=== PATIENT | female | born 1945 | race Caucasian/White ===

== ENCOUNTER 2019-04-06 10:47 | Inpatient (IN) ==
--- NOTE | 2019-04-06 11:41 | XRay Report ---
XR chest 1V portable CLINICAL HISTORY: 73 years-old Female presenting with SOB. TECHNIQUE: Portable upright AP view of the chest was obtained. COMPARISON: 11/09/2017. FINDINGS: Atherosclerosis of the aortic arch. Tortuosity of the descending thoracic aorta. Cardiac silhouette b orderline enlarged. No focal opacity. Resolution of prior right pleural effusion. No large effusion o r pneumothorax. Degenerative changes of the thoracic spine. Upper abdomen normal. IMPRESSION: 1. Borderline cardiomegaly. No other convincing evidence of acute cardiopulmonary disease. ACT 112: Negative or not required by law. Electronically signed by: Paul Calderon M.D. 04/06/2019 11:40 AM
[2019-04-06 12:33] LABS: Basophils # (auto) 0.03 K/uL (0-0.2); Basophils % (auto) 0.8 %; Eosinophils # (auto) 0.18 K/uL (0-0.5); Eosinophils % (auto) 4.5 %; Hematocrit (blood only) 29.4 % (37-47); Immature Granulocytes # (auto) 0.04 K/uL (0.00-0.02); Lymphocytes # (auto) 1.71 K/uL (1.2-3.4); Lymphocytes % (auto) 42.9 %; Mean Corpuscular Hemoglobin 32.6 pg (25-34); Mean Corpuscular Volume 95.8 fL (80-100); Mean Platelet Volume 8.8 fL (7.4-10.4); Monocytes # (auto) 0.37 K/uL (0.11-0.59); Monocytes % (auto) 9.3 %; Neutrophils # (auto) 1.66 K/uL (1.4-6.5); Neutrophils % (auto) 41.5 %; Nucleated RBC # (auto) 0.03 K/uL (0-0); Nucleated RBC % (auto) 0.8 %; Platelet Count 271 K/uL (130-400); RDW Coefficient of Variation 16.7 % (11.5-14.5); RDW Standard Deviation 58.2 fL (36.4-46.3); Red Blood Count 3.07 M/uL (4.2-5.4); White Blood Count 3.99 K/uL (4.8-10.8)
[2019-04-06 12:42] LABS: INR 2.1 (0.9-1.1); Partial Thromboplastin Ratio 1.1; Partial Thromboplastin Time 30.2 Seconds (21.0-31.0); Prothrombin Time 20.1 Seconds (9.0-12.0)
--- NOTE | 2019-04-06 12:45 | Electrocardiogram Report ---
Test Reason : Blood Pressure : / mmHG Vent. Rate : 102 BPM Atrial Rate : 094 BPM P-R Int : 000 ms QRS Dur : 076 ms QT Int : 378 ms P-R-T Axes : 000 001 006 degrees QTc Int : 492 ms Atrial fibrillation with rapid ventricular response Low voltage QRS Nonspecific T wave abnormality Abnormal ECG When compared with ECG of 29-JAN-2018 09:45, Significant changes have occurred Confirmed by Dedrick Damon ([id number]) on 04/06/2019 12:45:00 PM Referred By: Confirmed By:Dedrick Damon
[2019-04-06 12:53] LABS: Alanine Aminotransferase 26 U/L (12-78); Albumin Globulin Ratio 0.9 (0.9-2); Albumin Level 3.6 gm/dl (3.4-5.0); BUN Creatinine Ratio 18.2 (10-20); Bilirubin,Total 0.4 mg/dl (0.2-1); Blood Urea Nitrogen 13 mg/dl (7-18); Calcium 9.3 mg/dl (8.5-10.1); Carbon Dioxide 23 mmol/L (21-32); Chloride 109 mmol/L (98-107); Creatinine Clr Calc Pharmacy 65.8 ml/min; Est GFR (African American) 97.7; Est GFR (Non-African American) 84.3; Globulin 3.8 gm/dl (2.5-4.0); Glucose 92 mg/dl (70-99); Potassium 3.7 mmol/L (3.5-5.1); Sodium 140 mmol/L (136-145); Total Protein 7.4 gm/dl (6.4-8.2)
[2019-04-06 12:56] LABS: Alkaline Phosphatase 100 U/L (45-117); Aspartate Aminotransferase 15 U/L (15-37); Troponin I < 0.015 ng/ml (0-0.045)
[2019-04-06] MEDS ORDERED: dilTIAZem HCl 5 MG/ML 5 ML VIAL IV STA (12:57)
[2019-04-06] MEDS: dilTIAZem HCL 125 MG in DEXTROSE 5% 100 ML IV SCH (13:33)
--- NOTE | 2019-04-06 14:01 | History & Physical Report ---
Date of Service April 06, 2019 Assessment & Plan (1) Rapid atrial fibrillation: History of PAF and was admitted with A. fib with RVR Complains of shortness of breath with palpitation for the last 1 week with exertion Has been started on intravenous Cardizem Will get serial cardiac enzymes and cardiology consult We will continue sotalol and metoprolol succinate Cardiology consulted (2) Paroxysmal atrial fibrillation: Rate was controlled with sotalol beta-jalen Now has A. fib with RVR (3) HTN (hypertension): Blood pressure is controlled We will continue current medications (4) Anemia: Has chronic anemia No acute blood loss Her other medical conditions remained stable DVT prophylaxis On Coumadin INR therapeutic CODE STATUS Full History of Present Illness Chief Complaint: Shortness of breath with palpitation for the last 1 week Primary Care Provider: Mare Wright DO She is a 73-year-old female with significant past medical history of paroxysmal atrial fibrillation on sotalol and beta-jalen on Coumadin, hypertension and chronic anemia has been complaining of shortness of breath with palpitation with exertion for the last 1 week. She denies any chest pain, dizziness or any nausea and or vomiting associated with it. She has been complaining of more shortness of breath with exertion denies any weight gain and/or swelling of the legs. No fever and/or chills, no cough or phlegm, no problem with urine and her bowel habit. In the ER she was noted to have a heart rate of around 117 and the EKG did show A. fib with rate of 102. She was started with intravenous Cardizem and was admitted to telemetry unit for continuation of care. Allergies Allergy/AdvReac Type Severity Reaction Status Date / Time propranolol Allergy Mild bronchospasms Verified 04/06/19 12:04 with higher doses Iodinated Contrast Media Allergy Unknown HAD 1 WELT Verified 04/06/19 12:04 on one occasion nickel Allergy Unknown contact Verified 04/06/19 12:04 dermatitis Home Medications Home Medications Medication Instructions Recorded Confirmed Type Calcium 600 + D(3) 1 tab PO BID 12/18/17 04/06/19 History Prilosec OTC 20 mg PO QAM 12/18/17 04/06/19 History alendronate [Fosamax] 1 tab PO WK 12/18/17 04/06/19 History aspirin 81 mg PO QAM 12/18/17 04/06/19 History cetirizine [Zyrtec] 5 mg PO DAILY PRN 12/18/17 04/06/19 History fluticasone propionate [Flonase 1 spray INTRANASAL DAILY PRN 12/18/17 04/06/19 History Allergy Relief] levothyroxine 25 mcg PO QAM 12/18/17 04/06/19 History lysine 1,000 mg PO QAM 12/18/17 04/06/19 History valacyclovir 2,000 mg PO Q12H PRN 12/18/17 04/06/19 History warfarin 2.5 mg PO SUMOTUWETHFR 12/18/17 04/06/19 History sotalol 80 mg PO BID #60 tab 01/29/18 04/06/19 Rx amlodipine 5 mg PO DAILY 04/06/19 04/06/19 History losartan 100 mg PO DAILY 04/06/19 04/06/19 History metoprolol succinate 25 mg PO DAILY 04/06/19 04/06/19 History Past Med/Surg History Medical History A-fib RECENT DIAGNOSIS; PAROXYSMAL- ON WARFARIN Anxiety Atrial fibrillation with rapid ventricular response GERD (gastroesophageal reflux disease) History of cardioversion HTN (hypertension) Hx of bronchitis 11/2017 Hx of migraines Hx of skin cancer, basal cell NOSE Hypothyroidism Leukocytosis (leucocytosis) Obesity Osteoporosis Primary open angle glaucoma Stress bladder incontinence, female Valvular disease MILD TR/MR Surgical History History of bilateral tubal ligation History of colonoscopy History of cystoscopy S/P BOTOX INJECTION History of esophagogastroduodenoscopy (EGD) History of total left hip arthroplasty Family History Mother Atrial fibrillation Stroke Father Hypertension Mother Family history of diabetes mellitus Social History Preferred Language: [place] Communication Ability: Effective Plsql Developer Required: No Beliefs That Will Affect Care: None marital status: Current Living Situation: Spouse Other Information That Helps Us Care for You: No Feels Safe at Home: Yes Safety Concerns: Feels Safe At This Time Smoking Status: Never smoker Do You Dip or Chew Tobacco: No ; Second Hand Exposure: No ; Tobacco Cessation Education Requested by Patient: No Hx Alcohol Use: Yes Alcohol type: wine Hx Substance Use: No Review of Systems Review of Systems: All systems reviewed & are unremarkable except as noted in HPI & below Physical Exam Physical Exam: Lying in bed comfortably Constitutional: well developed and well nourished; no acute distress and not ill appearing Eyes: PERRL, conjunctivae normal, anicteric sclerae ENMT: external ear and nose normal, oropharynx normal Neck: trachea midline, no thyromegaly Respiratory: normal respiratory effort; no respiratory distress Auscultation: lungs clear to auscultation bilaterally Cardiovascular: Rate/Rhythm: + tachycardic; + abnormal rate and + abnormal rhythm Heart Sounds: no murmur Extremities: + edema (Trace edema bilaterally) Gastrointestinal (Abdomen): Inspection/Auscultation: abdomen normal to inspection and normal bowel sounds Percussion/Palpation: abdomen soft; abdomen nontender Neurologic: moves all extremities; no focal motor deficits Psychiatric: A+Ox3, euthymic affect Lymphatic: no cervical or axillary lymphadenopathy Results & Data Vital Signs (Past 12 Hours) Vital Signs Temp Pulse Resp BP Pulse Ox 04/06/19 13:40 96 H 14 113/76 96 04/06/19 13:36 103 H 21 126/81 95 04/06/19 13:30 119 H 21 144/103 H 97 04/06/19 13:00 109 H 18 117/101 H 96 04/06/19 12:30 99 H 22 127/95 95 04/06/19 12:00 117 H 26 H 115/75 04/06/19 11:55 109 H 23 118/73 04/06/19 11:47 90 04/06/19 11:14 36.8 C 104 H 18 119/81 98 Laboratory Results Short CBC 04/06/19 Range/Units 12:12 WBC 3.99 L (4.8-10.8) K/uL Hgb 10.0 L (12.0-16.0) g/dL Hct 29.4 L (37-47) % Plt Count 271 (130-400) K/uL BMP 04/06/19 12:12 Sodium 140 Potassium 3.7 Chloride 109 H Carbon Dioxide 23 BUN 13 Creatinine 0.72 Glucose 92 Calcium 9.3 Cardiac Enzymes 04/06/19 Range/Units 12:12 Troponin I < 0.015 (0-0.045) ng/ml Liver Function 04/06/19 Range/Units 12:12 Total Bilirubin 0.4 (0.2-1) mg/dl AST 15 (15-37) U/L ALT 26 (12-78) U/L Alkaline Phosphatase 100 (45-117) U/L Albumin 3.6 (3.4-5.0) gm/dl Medications Administered Current Inpatient Medications Diltiazem HCl 125 mg/ Dextrose 125 mls @ 5 mls/hr IV .Q24H [facility]; Protocol Stop: 05/06/19 12:59 Last Admin: 04/06/19 13:33 Dose: 5 mg/hr, 5 mls/hr Documented by: Code Status & VTE Plan VTE Prophylaxis Plan VTE Prophylaxis will be ordered: Yes (1) Anemia Anemia type: unspecified type Qualified Code(s): D64.9 - Anemia, unspecified
[2019-04-06] MEDS ORDERED: FLUTICASONE PROPIONATE NA SPR 16 GM BTL PRN (14:57)
[2019-04-06] MEDS ORDERED: CETIRIZINE HCL 10 MG TABLET PO PRN (14:57)
[2019-04-06] MEDS: WARFARIN SOD 2.5 MG TAB PO SCH (16:34)
--- NOTE | 2019-04-06 17:27 | Cardiology Consultation ---
Date of Consultation April 06, 2019 Assessment & Plan (1) Rapid atrial fibrillation: (2) Anemia: INR today is 2.1. Hemoglobin stable at 10. View of recent outpatient INR tests dating back to 01/01/2019 have been greater than 2. Continue prior to hospital dosing of sotalol, metoprolol, and add IV diltiazem for now. Continue Coumadin. Make n.p.o. after midnight for consideration of direct-current cardioversion tomorrow. History of Present Illness Attending Physician: Tyler Mcginnis MD History of Present Illness Oralia Wolfe is a 73 year old female seen in cardiology consultation per the request of Dr Mcginnis for the evaluation of atrial fibrillation. The patient's primary inspector experimental assembly is Dr. Morris Zhou of our practice who the patient had most recently seen on 03/24/2019. At that time she described stable cardiac signs and symptoms. In the meantime she has been experiencing shortness of breath with exertion and palpitations for the last week. In the emergency room, telemetry and EKG confirmed the presence of atrial fibrillation with mildly elevated ventricular response. Past Cardiac History: 1. Paroxysmal atrial fibrillation, on rhythm control strategy on a combination of metoprolol and sotalol, Coumadin for stroke prophylaxis, most recent recurrence in November 2018 2. Borderline tachycardia bradycardia syndrome 3. Severe tricuspid regurgitation with moderate pulmonary hypertension, most recent outpatient echocardiogram in December 2019 revealing LVEF in the range of 60%, pulmonary artery systolic pressure in the range of 40 to 45 mmHg. Allergies Allergy/AdvReac Type Severity Reaction Status Date / Time propranolol Allergy Mild bronchospasms Verified 04/06/19 12:04 with higher doses Iodinated Contrast Media Allergy Unknown HAD 1 WELT Verified 04/06/19 12:04 on one occasion nickel Allergy Unknown contact Verified 04/06/19 12:04 dermatitis Home Medications Home Medications Medication Instructions Recorded Confirmed Type Calcium 600 + D(3) 1 tab PO BID 12/18/17 04/06/19 History Prilosec OTC 20 mg PO QAM 12/18/17 04/06/19 History alendronate [Fosamax] 1 tab PO WK 12/18/17 04/06/19 History aspirin 81 mg PO QAM 12/18/17 04/06/19 History cetirizine [Zyrtec] 5 mg PO DAILY PRN 12/18/17 04/06/19 History fluticasone propionate [Flonase 1 spray INTRANASAL DAILY PRN 12/18/17 04/06/19 History Allergy Relief] levothyroxine 25 mcg PO QAM 12/18/17 04/06/19 History lysine 1,000 mg PO QAM 12/18/17 04/06/19 History valacyclovir 2,000 mg PO Q12H PRN 12/18/17 04/06/19 History warfarin 2.5 mg PO SUMOTUWETHFR 12/18/17 04/06/19 History sotalol 80 mg PO BID #60 tab 01/29/18 04/06/19 Rx amlodipine 5 mg PO DAILY 04/06/19 04/06/19 History losartan 100 mg PO DAILY 04/06/19 04/06/19 History metoprolol succinate 25 mg PO DAILY 04/06/19 04/06/19 History Patient History Medical History A-fib RECENT DIAGNOSIS; PAROXYSMAL- ON WARFARIN Anxiety Atrial fibrillation with rapid ventricular response GERD (gastroesophageal reflux disease) History of cardioversion HTN (hypertension) Hx of bronchitis 11/2017 Hx of migraines Hx of skin cancer, basal cell NOSE Hypothyroidism Leukocytosis (leucocytosis) Obesity Osteoporosis Primary open angle glaucoma Stress bladder incontinence, female Valvular disease MILD TR/MR Surgical History History of bilateral tubal ligation History of colonoscopy History of cystoscopy S/P BOTOX INJECTION History of esophagogastroduodenoscopy (EGD) History of total left hip arthroplasty Family History Mother Atrial fibrillation Stroke Father Hypertension Mother Family history of diabetes mellitus Social History Preferred Language: Danish Communication Ability: Effective Open End Spinning Operator Required: No Beliefs That Will Affect Care: None marital status: Current Living Situation: Spouse Other Information That Helps Us Care for You: No Feels Safe at Home: Yes Safety Concerns: Feels Safe At This Time Smoking Status: Never smoker Do You Dip or Chew Tobacco: No ; Second Hand Exposure: No ; Tobacco Cessation Education Requested by Patient: No Hx Alcohol Use: Yes Alcohol type: wine Hx Substance Use: No Review of Systems Review of Systems: All systems reviewed & are unremarkable except as noted in HPI & below Physical Exam Physical Exam: Temp Pulse Resp BP Pulse Ox 36.3 C L 101 H 16 144/80 H 97 04/06/19 15:46 04/06/19 15:46 04/06/19 15:46 04/06/19 15:46 04/06/19 15:46 Constitutional: WD/WN, vitals as above Respiratory: normal respiratory effort, lungs clear to auscultation Cardiovascular: Rate/Rhythm: + irregularly irregular Heart Sounds: + murmur (1/6 systolic murmur) Gastrointestinal (Abdomen): normal bowel sounds, soft, nontender, no hepatosplenomegaly Neurologic: PERRL, EOMI, accommodation nl, no face palsy, no dysarthria Results & Data Vital Signs (Past 12 Hours) Vital Signs Temp Pulse Pulse Resp BP BP Pulse Ox 04/06/19 15:46 36.3 C L 90 101 H 16 144/80 H 97 04/06/19 14:11 86 15 119/71 95 04/06/19 14:00 74 20 118/67 96 04/06/19 13:50 103 H 20 104/76 95 04/06/19 13:40 96 H 14 113/76 96 04/06/19 13:36 103 H 21 126/81 95 04/06/19 13:30 119 H 21 144/103 H 97 04/06/19 13:00 109 H 18 117/101 H 96 04/06/19 12:30 99 H 22 127/95 95 04/06/19 12:00 117 H 26 H 115/75 04/06/19 11:55 109 H 23 118/73 04/06/19 11:47 90 04/06/19 11:14 36.8 C 104 H 18 119/81 98 Laboratory Results Cardiac Enzymes 04/06/19 Range/Units 12:12 AST 15 (15-37) U/L Troponin I < 0.015 (0-0.045) ng/ml Coagulation 04/06/19 Range/Units 12:12 PT 20.1 H (9.0-12.0) Seconds APTT 30.2 (21.0-31.0) Seconds CBC 04/06/19 Range/Units 12:12 WBC 3.99 L (4.8-10.8) K/uL RBC 3.07 L (4.2-5.4) M/uL Hgb 10.0 L (12.0-16.0) g/dL Hct 29.4 L (37-47) % Plt Count 271 (130-400) K/uL Neut # (Auto) 1.66 (1.4-6.5) K/uL Lymph # (Auto) 1.71 (1.2-3.4) K/uL [place] # (Auto) 0.37 (0.11-0.59) K/uL Eos # (Auto) 0.18 (0-0.5) K/uL Baso # (Auto) 0.03 (0-0.2) K/uL Comprehensive Metabolic Panel 04/06/19 Range/Units 12:12 Sodium 140 (136-145) mmol/L Potassium 3.7 (3.5-5.1) mmol/L Chloride 109 H (98-107) mmol/L Carbon Dioxide 23 (21-32) mmol/L BUN 13 (7-18) mg/dl Creatinine 0.72 (0.6-1.2) mg/dl Glucose 92 (70-99) mg/dl Calcium 9.3 (8.5-10.1) mg/dl AST 15 (15-37) U/L ALT 26 (12-78) U/L Alkaline Phosphatase 100 (45-117) U/L Total Protein 7.4 (6.4-8.2) gm/dl Albumin 3.6 (3.4-5.0) gm/dl Intake and Output 04/06/19 04/06/19 04/06/19 06:59 14:59 22:59 Other: Weight 77.1 kg Patient Weight 04/07/19 06:59 Weight 77.1 kg Diagnostic Findings EKG performed earlier today 04/06/2019 at 12:13 AM revealed atrial fibrillation 102 bpm, nonspecific diffuse T wave flattening, corrected QT interval 492 ms, although difficult to measure/calculate due to the atrial activity. (1) Anemia Anemia type: unspecified type Qualified Code(s): D64.9 - Anemia, unspecified
--- NOTE | 2019-04-06 18:18 | Emergency Department Note ---
Entered by Ander Pereira acting as a scribe for Dima Mann MD History of Present Illness General Chief complaint: Shortness of Breath/Dyspnea Stated complaint: SHORTNESS OF BREATH Time Seen by Provider: 04/06/19 12:50 Source: patient Limitations: no limitations History of Present Illness Onset (ago): week(s) 1 Location: chest Severity: similar to prior episodes Pain Consistency: + other (worsening) Maximum Pain Intensity: 2 Quality: + other (flutter) Associated symptoms: + denies other symptoms (black or bloody stools), + shortness of breath and + other (anxious, chest fullness); no chest pain The patient is a 73 year old female who presents to the Emergency Room with complaints of constant and worsening SOB starting a week ago. The patient states she has a history of A-Fib and states she goes in and out of it. She states she has been in A-Fib for a week and has not converted to a normal rhythm. She states she has been getting more anxious and SOB as the week has progressed. She states she has been having a chest fullness feeling. She states she was last in A-Fib for a prolonged period of time in December when she was in A-Fib for 4 days. She states she converted to a normal rhythm. She states she takes Coumadin and states she has had a high INR for a few weeks at about 5.5. The patient denies having black or bloody stools and chest pain. She states she has had back pain for a couple months. 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 Zhou. Home Medications Home Medications Medication Instructions Recorded Confirmed Type Calcium 600 + D(3) 1 tab PO BID 12/18/17 04/06/19 History Prilosec OTC 20 mg PO QAM 12/18/17 04/06/19 History alendronate [Fosamax] 1 tab PO WK 12/18/17 04/06/19 History aspirin 81 mg PO QAM 12/18/17 04/06/19 History cetirizine [Zyrtec] 5 mg PO DAILY PRN 12/18/17 04/06/19 History fluticasone propionate [Flonase 1 spray INTRANASAL DAILY PRN 12/18/17 04/06/19 History Allergy Relief] levothyroxine 25 mcg PO QAM 12/18/17 04/06/19 History lysine 1,000 mg PO QAM 12/18/17 04/06/19 History valacyclovir 2,000 mg PO Q12H PRN 12/18/17 04/06/19 History warfarin 2.5 mg PO SUMOTUWETHFR 12/18/17 04/06/19 History sotalol 80 mg PO BID #60 tab 01/29/18 04/06/19 Rx amlodipine 5 mg PO DAILY 04/06/19 04/06/19 History losartan 100 mg PO DAILY 04/06/19 04/06/19 History metoprolol succinate 25 mg PO DAILY 04/06/19 04/06/19 History Allergies Allergy/AdvReac Type Severity Reaction Status Date / Time propranolol Allergy Mild bronchospasms Verified 04/06/19 12:04 with higher doses Iodinated Contrast Media Allergy Unknown HAD 1 WELT Verified 04/06/19 12:04 on one occasion nickel Allergy Unknown contact Verified 04/06/19 12:04 dermatitis Past Med/Surg History Medical History A-fib RECENT DIAGNOSIS; PAROXYSMAL- ON WARFARIN Anxiety Atrial fibrillation with rapid ventricular response GERD (gastroesophageal reflux disease) History of cardioversion HTN (hypertension) Hx of bronchitis 11/2017 Hx of migraines Hx of skin cancer, basal cell NOSE Hypothyroidism Leukocytosis (leucocytosis) Obesity Osteoporosis Primary open angle glaucoma Stress bladder incontinence, female Valvular disease MILD TR/MR Surgical History History of bilateral tubal ligation History of colonoscopy History of cystoscopy S/P BOTOX INJECTION History of esophagogastroduodenoscopy (EGD) History of total left hip arthroplasty Family History Mother Atrial fibrillation Stroke Father Hypertension Mother Family history of diabetes mellitus Social History Preferred Language: Kittitian Communication Ability: Effective Reference And Instruction Librarian Required: No Beliefs That Will Affect Care: None marital status: Current Living Situation: Spouse Other Information That Helps Us Care for You: No Feels Safe at Home: Yes Safety Concerns: Feels Safe At This Time Smoking Status: Never smoker Do You Dip or Chew Tobacco: No ; Second Hand Exposure: No ; Tobacco Cessation Education Requested by Patient: No Hx Alcohol Use: Yes Alcohol type: wine Hx Substance Use: No Review of Systems See HPI for pertinent positives & negatives. and A total of 10 systems reviewed and were otherwise negative Physical Exam Vital Signs Vital Signs - 24 hr 04/06/19 11:14 04/06/19 11:47 04/06/19 11:55 Temperature 36.8 C Temperature Source Oral Pulse Rate 104 H 109 H Pulse Rate from SpO2 Sensor Respiratory Rate 18 23 Respiratory Effort / Characteristics Non-Labored Spontaneous Respiratory Depth Normal Blood Pressure 119/81 118/73 Blood Pressure Mean 93 99 Pulse Oximetry 98 90 Oxygen Delivery Method Room Air Room Air Sepsis Recent Fever Within 48 Hours No Sepsis New/Unexplained Change in Mental Status No Sepsis Action Taken by Nursing No Action Required 04/06/19 12:00 04/06/19 12:30 04/06/19 13:00 Temperature Temperature Source Pulse Rate 117 H 99 H 109 H Pulse Rate from SpO2 Sensor 89 100 H Respiratory Rate 26 H 22 18 Respiratory Effort / Characteristics Respiratory Depth Blood Pressure 115/75 127/95 117/101 H Blood Pressure Mean 98 104 109 Pulse Oximetry 95 96 Oxygen Delivery Method Sepsis Recent Fever Within 48 Hours Sepsis New/Unexplained Change in Mental Status Sepsis Action Taken by Nursing 04/06/19 13:30 04/06/19 13:36 04/06/19 13:40 Temperature Temperature Source Pulse Rate 119 H 103 H 96 H Pulse Rate from SpO2 Sensor 124 H 101 H 86 Respiratory Rate 21 21 14 Respiratory Effort / Characteristics Respiratory Depth Blood Pressure 144/103 H 126/81 113/76 Blood Pressure Mean 124 87 93 Pulse Oximetry 97 95 96 Oxygen Delivery Method Sepsis Recent Fever Within 48 Hours Sepsis New/Unexplained Change in Mental Status Sepsis Action Taken by Nursing 04/06/19 13:50 Temperature Temperature Source Pulse Rate 103 H Pulse Rate from SpO2 Sensor 98 H Respiratory Rate 20 Respiratory Effort / Characteristics Respiratory Depth Blood Pressure 104/76 Blood Pressure Mean 81 Pulse Oximetry 95 Oxygen Delivery Method Sepsis Recent Fever Within 48 Hours Sepsis New/Unexplained Change in Mental Status Sepsis Action Taken by Nursing GENERAL: Patient is in no acute distress. HEENT: No acute trauma, normocephalic atraumatic, mucous membranes moist, no nasal congestion, no scleral icterus. NECK: No stridor, no adenopathy, no meningismus, trachea is midline. LUNGS: Clear to auscultation bilaterally, no wheeze, no rhonchi, breath sounds equal. HEART: Irregular rhythm. Tachycardic rate. No murmurs. ABDOMEN: Soft, nontender, bowel sounds positive, no hernias, no peritonitis. EXTREMITIES: No cyanosis or edema, full range of motion of all the joints without pain or difficulty, no signs for acute trauma. NEUROLOGIC: Oriented x 3, no acute motor or sensory deficits, no focal weakness. SKIN: No rash, no jaundice, no diaphoresis. Course Course 1254: The patient was evaluated in room C4, and a complete history and physical examination were performed. 1305: I discussed the patient's case with Dr. Rahel Sparks Hospitalist. He will evaluate the patient for further management Administered Medications Diltiazem HCl 125 mg/ Dextrose 125 mls @ 5 mls/hr IV .Q24H [facility]; Protocol Stop: 05/06/19 12:59 Last Titration: 04/06/19 19:08 Dose: 5 mg/hr, 5 mls/hr Documented by: [id number] Cosigned by: [id number] Admin: 04/06/19 13:33 Dose: 5 mg/hr, 5 mls/hr Documented by: [id number] Cosigned by: [id number] Warfarin Sodium (Coumadin) 2.5 mg PO [id number] MOHAMUD Stop: 05/06/19 15:59 Last Admin: 04/06/19 16:34 Dose: 2.5 mg Documented by: [id number] Discontinued Medications Diltiazem HCl (Cardizem) 10 mg IV NOW STA Stop: 04/06/19 12:58 Last Admin: 04/06/19 13:34 Dose: 10 mg Documented by: [id number] Cosigned by: [id number] Critical Care Time Critical Care Time: Yes Total Critical Care Time: 36 I have personally spent greater than 36 minutes of critical care time in the direct management of this patient. This includes bedside care, interpretation of diagnostic studies and testing, discussion with consultants, the patient, and family members, and other required patient management activities. This 36 minutes is in excess of all separately billable procedures. Medical Decision Making Differential Diagnosis Differential Diagnosis includes but is not limited to rapid A-Fib, anemia, electrolyte imbalance, cardiac ischemia, NH, dehydration, infection, and dysrhythmia. Medical Records Attestation: I reviewed the patient's medical records. Home Medications Current Medication List: was personally reviewed by me Laboratory Data Attestation: I reviewed the patient's lab results. Result diagrams: 04/06/19 12:12 04/06/19 12:12 Lab Results 04/06/19 04/06/19 04/06/19 Range/Units 12:12 12:12 12:12 WBC 3.99 L (4.8-10.8) K/uL RBC 3.07 L (4.2-5.4) M/uL Hgb 10.0 L (12.0-16.0) g/dL Hct 29.4 L (37-47) % MCV 95.8 (80-100) fL MCH 32.6 (25-34) pg MCHC 34.0 (32-36) g/dL RDW Std Deviation 58.2 H (36.4-46.3) fL RDW Coeff of Eunice 16.7 H (11.5-14.5) % Plt Count 271 (130-400) K/uL MPV 8.8 (7.4-10.4) fL Immature Gran % (Auto) 1.0 % Neut % (Auto) 41.5 % Lymph % (Auto) 42.9 % [place] % (Auto) 9.3 % Eos % (Auto) 4.5 % Baso % (Auto) 0.8 % Immature Gran # (Auto) 0.04 H (0.00-0.02) K/uL Neut # (Auto) 1.66 (1.4-6.5) K/uL Lymph # (Auto) 1.71 (1.2-3.4) K/uL [place] # (Auto) 0.37 (0.11-0.59) K/uL Eos # (Auto) 0.18 (0-0.5) K/uL Baso # (Auto) 0.03 (0-0.2) K/uL Absolute Nucleated RBC 0.03 H (0-0) K/uL Nucleated RBC % (auto) 0.8 % PT 20.1 H (9.0-12.0) Seconds INR 2.1 H (0.9-1.1) APTT 30.2 (21.0-31.0) Seconds PTT Ratio 1.1 Sodium 140 (136-145) mmol/L Potassium 3.7 (3.5-5.1) mmol/L Chloride 109 H (98-107) mmol/L Carbon Dioxide 23 (21-32) mmol/L Anion Gap 8.0 (3-11) BUN 13 (7-18) mg/dl Creatinine 0.72 (0.6-1.2) mg/dl Est Cr Clr Drug Dosing 65.8 ml/min Est GFR ( Amer) 97.7 Est GFR (Non-Af Amer) 84.3 BUN/Creatinine Ratio 18.2 (10-20) Glucose 92 (70-99) mg/dl Calcium 9.3 (8.5-10.1) mg/dl Total Bilirubin 0.4 (0.2-1) mg/dl AST 15 (15-37) U/L ALT 26 (12-78) U/L Alkaline Phosphatase 100 (45-117) U/L Troponin I < 0.015 (0-0.045) ng/ml Total Protein 7.4 (6.4-8.2) gm/dl Albumin 3.6 (3.4-5.0) gm/dl Globulin 3.8 (2.5-4.0) gm/dl Albumin/Globulin Ratio 0.9 (0.9-2) Imaging Data Radiologist's Impression: Radiology results as stated below per my review and the radiologist's interpretation: XR chest 1V portable CLINICAL HISTORY: 73 years-old Female presenting with SOB. TECHNIQUE: Portable upright AP view of the chest was obtained. COMPARISON: 11/09/2017. FINDINGS: Atherosclerosis of the aortic arch. Tortuosity of the descending thoracic aorta. Cardiac silhouette borderline enlarged. No focal opacity. Resolution of prior right pleural effusion. No large effusion or pneumothorax. Degenerative changes of the thoracic spine. Upper abdomen normal. IMPRESSION: 1. Borderline cardiomegaly. No other convincing evidence of acute cardiopulmonary disease. ACT 112: Negative or not required by law. Electronically signed by: Paul Calderon M.D. 04/06/2019 11:40 AM ECG Data Attestation: I personally reviewed and interpreted this ECG as follows: Rate (beats per minute): 102 Rhythm: + atrial fibrillation ECG Intervals/blocks: + Normal QT-c (at 492) ECG ST segments: + Nonspecific ST abnormalities (diffusely) ECG Findings: no PVCs Blood Pressure Blood Pressure Findings: Elevated blood pressure Blood Pressure Disposition: further management by hospitalist [facility] Narrative There is a slightly low white count, a mild anemia was also seen. The platelet count was normal. INR was 2.1, this is consistent with the patient's Coumadin use. No significant electrolyte abnormality or kidney failure. No liver enzyme elevation. EKG showed a rapid A. fib, no acute ischemic change. Cardiac enzyme testing x1 is not consistent with acute cardiac injury. Chest film showed some cardiomegaly. There was no CHF or pneumonia. The patient presents with some shortness of breath and palpitations. She has a history of A. fib and is in a rapid A. fib based on her work-up. The patient was given a bolus of IV diltiazem. She was placed on a Cardizem drip to help control the heart rate. The patient is in need of a hospital stay. She is in a rapid A. fib and compla ining of shortness of breath. A Cardizem bolus and drip has been initiated. I did speak to the patient and correctional case records supervisor. The on-call hospitalist has been consulted. Continuous Cardiac Monitoring: An order was placed for continuous cardiac monitoring. The monitor shows a rate of 105 BPM with a rapid atrial fibrillation. Impression & Plan Rapid atrial fibrillation, Anemia, SOB (shortness of breath) Discharge Plan Visit Data *Final* Discharge Date/Time: 04/06/19 14:27 Chief Complaint: Shortness of Breath/Dyspnea Stated Complaint: SHORTNESS OF BREATH ED Provider: Dima Mann Discharge Problem: Rapid atrial fibrillation, Anemia, SOB (shortness of breath) Patient Disposition: Admitted As Inpatient Discharge Instructions Interventions: ED Discharge Assessment Last Done: 04/06/19 14:27 Discharge Problem: Anemia Qualifiers: Anemia type: unspecified type Qualified Code(s): D64.9 - Anemia, unspecified The scribe's documentation has been prepared under my direction and personally reviewed by me in its entirety. I confirm that the note above accurately reflects all work, treatment, procedures, and medical decision making performed by me.
[2019-04-06] MEDS: SOTALOL HCL 80 MG TAB PO SCH (20:00)
[2019-04-06] MEDS: CALCIUM 600MG + VIT D 400 IU TAB PO SCH (20:00)
[2019-04-06] MEDS: BRINZOLAMIDE OP SCH (20:01)
[2019-04-06] MEDS: BRIMONIDINE TARTRATE OP SCH (20:01)
[2019-04-06] MEDS: TIMOLOL OP SCH (20:01)
[2019-04-06] MEDS ORDERED: ROCKLATAN OP SCH (21:00)
[2019-04-07 06:04] LABS: Basophils # (auto) 0.02 K/uL (0-0.2); Basophils % (auto) 0.4 %; Eosinophils % (auto) 4.4 %; Hematocrit (blood only) 28.9 % (37-47); Hemoglobin 9.6 g/dL (12.0-16.0); Immature Granulocytes # (auto) 0.06 K/uL (0.00-0.02); Immature Granulocytes % (auto) 1.3 %; Lymphocytes # (auto) 1.51 K/uL (1.2-3.4); Lymphocytes % (auto) 33.3 %; Mean Corpuscular Hemoglobin 32.5 pg (25-34); Mean Corpuscular Hgb Conc 33.2 g/dL (32-36); Mean Platelet Volume 9.1 fL (7.4-10.4); Monocytes # (auto) 0.61 K/uL (0.11-0.59); Monocytes % (auto) 13.5 %; Neutrophils # (auto) 2.13 K/uL (1.4-6.5); Neutrophils % (auto) 47.1 %; Nucleated RBC # (auto) 0.04 K/uL (0-0); Nucleated RBC % (auto) 0.9 %; Platelet Count 244 K/uL (130-400); RDW Coefficient of Variation 16.8 % (11.5-14.5); RDW Standard Deviation 59.9 fL (36.4-46.3); Red Blood Count 2.95 M/uL (4.2-5.4); White Blood Count 4.53 K/uL (4.8-10.8)
[2019-04-07] MEDS ORDERED: LEVOTHYROXINE SODIUM 25 MCG TABLET PO SCH (06:30)
[2019-04-07 06:36] LABS: BUN Creatinine Ratio 17.7 (10-20); Calcium 9.2 mg/dl (8.5-10.1); Creatinine Clr Calc Pharmacy 58.3 ml/min; Est GFR (African American) 84.7; Est GFR (Non-African American) 73.1; Magnesium 1.9 mg/dl (1.8-2.4); Potassium 3.8 mmol/L (3.5-5.1)
[2019-04-07] MEDS: SOTALOL HCL 80 MG TAB PO SCH (07:16)
[2019-04-07] MEDS: CALCIUM 600MG + VIT D 400 IU TAB PO SCH (07:16)
[2019-04-07] MEDS: ASPIRIN 81 MG ECTAB PO SCH ×2 (07:17→07:24)
[2019-04-07] MEDS: BRIMONIDINE TARTRATE OP SCH (07:18)
[2019-04-07] MEDS: TIMOLOL OP SCH (07:18)
[2019-04-07] MEDS: BRINZOLAMIDE OP SCH ×2 (07:18→14:06)
[2019-04-07] MEDS: dilTIAZem HCL 125 MG in DEXTROSE 5% 100 ML IV SCH (07:26)
[2019-04-07] MEDS ORDERED: AMLODIPINE BESYLATE 5 MG TAB PO SCH (09:00)
[2019-04-07] MEDS ORDERED: NON-FORMULARY MEDICATION (Lysine 1,000 MG) PO SCH (09:00)
[2019-04-07] MEDS ORDERED: METOPROLOL SUCC 25MG EXT REL TAB PO SCH (09:00)
[2019-04-07] MEDS ORDERED: PANTOprazole 40 MG TAB PO SCH (09:00)
[2019-04-07] MEDS ORDERED: LOSARTAN POTASSIUM 50 MG TAB PO SCH (09:00)
[2019-04-07 09:11] LABS: INR 2.2 (0.9-1.1); Prothrombin Time 21.7 Seconds (9.0-12.0)
--- NOTE | 2019-04-07 10:36 | Cardiology Progress Note ---
Date of Service April 07, 2019 Assessment & Plan (1) Rapid atrial fibrillation: Remains in AF. INR at goal. Will proceed with direct current cardioversion. Informed consent obtained. Pt elects to proceed. Subjective Remained in AF overnight, currently AF at 110 bpm noted on telemetry on diltiazem IV infusion. INR 2.2 today. Review of Systems Review of Systems: All systems reviewed & are unremarkable except as noted in HPI & below Physical Exam Physical Exam: Temp Pulse Resp BP Pulse Ox 36.9 C 93 H 18 112/64 94 04/07/19 07:03 04/07/19 09:55 04/07/19 09:55 04/07/19 09:55 04/07/19 09:55 Constitutional: WD/WN, vitals as above Respiratory: normal respiratory effort, lungs clear to auscultation Cardiovascular: Rate/Rhythm: + irregularly irregular Heart Sounds: no murmur Vessels: no JVD Gastrointestinal (Abdomen): normal bowel sounds, soft, nontender, no hepatosplenomegaly Neurologic: patellar DTR's 2+ bilat, sensation intact Results & Data Vital Signs (Past 12 Hours) Vital Signs Temp Pulse Pulse Resp BP BP Pulse Ox 04/07/19 09:55 93 H 18 112/64 94 04/07/19 08:00 83 04/07/19 07:03 36.9 C 106 H 18 131/76 94 04/07/19 03:19 36.5 C 102 H 18 107/71 93 04/07/19 00:00 36.9 C 114 H 18 109/66 95 04/06/19 23:29 107 H
--- NOTE | 2019-04-07 10:37 | Anesthesiology Consultation ---
Date of Service April 07, 2019 Assessment & Plan (1) Encounter for pre-operative examination: Chart Review Chart Review: Acceptable Risk for Surgery and Patient NOT seen in Pre Admission Testing Consults Requested none History Surgery Operation Date: 04/07/19 12:00 Proposed Procedures p Cardioversion Urology Nurse w/Anesthesia - Gómez Jensen DO Height/Weight Height: 5 ft Weight: 76.6 kg Allergies Allergy/AdvReac Type Severity Reaction Status Date / Time propranolol Allergy Mild bronchospasms Verified 04/06/19 12:04 with higher doses Iodinated Contrast Media Allergy Unknown HAD 1 WELT Verified 04/06/19 12:04 on one occasion nickel Allergy Unknown contact Verified 04/06/19 12:04 dermatitis Medications Home Medications Medication Instructions Recorded Confirmed Last Taken Calcium 600 + D(3) 1 tab PO BID 12/18/17 04/06/19 Unknown Prilosec OTC 20 mg PO QAM 12/18/17 04/06/19 Unknown alendronate [Fosamax] 1 tab PO WK 12/18/17 04/06/19 Unknown aspirin 81 mg PO QAM 12/18/17 04/06/19 Unknown cetirizine [Zyrtec] 5 mg PO DAILY PRN 12/18/17 04/06/19 Unknown fluticasone propionate [Flonase 1 spray INTRANASAL DAILY PRN 12/18/17 04/06/19 Unknown Allergy Relief] levothyroxine 25 mcg PO QAM 12/18/17 04/06/19 Unknown lysine 1,000 mg PO QAM 12/18/17 04/06/19 Unknown valacyclovir 2,000 mg PO Q12H PRN 12/18/17 04/06/19 Unknown warfarin 2.5 mg PO SUMOTUWETHFR 12/18/17 04/06/19 Unknown sotalol 80 mg PO BID #60 tab 01/29/18 04/06/19 Unknown amlodipine 5 mg PO DAILY 04/06/19 04/06/19 Unknown losartan 100 mg PO DAILY 04/06/19 04/06/19 Unknown metoprolol succinate 25 mg PO DAILY 04/06/19 04/06/19 Unknown Active Medications Generic Name Dose Route Start Last Admin Trade Name Freq PRN Reason Stop Dose Admin Amlodipine Besylate 5 mg 04/07/19 09:00 04/07/19 07:17 Norvasc PO 05/07/19 08:59 5 mg DAILY MOHAMUD Administration Aspirin 81 mg 04/07/19 09:00 04/07/19 07:24 Ecotrin Ectab PO 05/07/19 08:59 Not Given QAM MOHAMUD Brimonidine/Timolol 1 drops 04/06/19 21:00 04/07/19 07:18 Combigan OP 05/06/19 20:59 1 drops BID MOHAMUD Administration Brinzolamide 1 drops 04/06/19 21:00 04/07/19 07:18 Azopt OP 05/06/19 20:59 1 drops TID MOHAMUD Administration Cetirizine HCl 5 mg 04/06/19 14:57 04/07/19 07:17 Zyrtec PO 05/06/19 14:56 5 mg DAILY PRN Administration allergies Diltiazem HCl 125 mg/ Dextrose 125 mls @ 5 mls/hr 04/06/19 13:00 04/07/19 07:26 IV 05/06/19 12:59 5 mg/hr .Q24H MOHAMUD 5 mls/hr Administration Protocol 5 MG/HR Levothyroxine Sodium 25 mcg 04/07/19 06:30 04/07/19 05:53 Synthroid PO 05/07/19 06:29 25 mcg DAILYBB MOHAMUD Administration Losartan Potassium 100 mg 04/07/19 09:00 04/07/19 07:16 Cozaar PO 05/07/19 08:59 100 mg DAILY MOHAMUD Administration Metoprolol Succinate 25 mg 04/07/19 09:00 04/07/19 07:17 Toprol Xl PO 05/07/19 08:59 25 mg DAILY MOHAMUD Administration Multivitamins/Minerals 1 tab 04/06/19 21:00 04/07/19 07:16 Caltrate Plus PO 05/06/19 20:59 1 tab BID MOHAMUD Administration Pt's Own Med: 1 ea 04/06/19 21:00 04/06/19 20:00 Rocklatan 0.02%/0. OP 05/06/19 20:59 1 drops 005% QPM MOHAMUD Administration Pantoprazole Sodium 40 mg 04/07/19 09:00 04/07/19 07:16 Protonix PO 05/07/19 08:59 40 mg QAM MOHAMUD Administration Sotalol HCl 80 mg 04/06/19 21:00 04/07/19 07:16 Betapace PO 05/06/19 20:59 80 mg BID MOHAMUD Administration Warfarin Sodium 2.5 mg 04/06/19 16:00 04/06/19 16:34 Coumadin PO 05/06/19 15:59 2.5 mg [id number] MOHAMUD Administration Past Medical History Medical History A-fib RECENT DIAGNOSIS; PAROXYSMAL- ON WARFARIN Anxiety Atrial fibrillation with rapid ventricular response GERD (gastroesophageal reflux disease) History of cardioversion HTN (hypertension) Hx of bronchitis 11/2017 Hx of migraines Hx of skin cancer, basal cell NOSE Hypothyroidism Leukocytosis (leucocytosis) Obesity Osteoporosis Primary open angle glaucoma Stress bladder incontinence, female Valvular disease MILD TR/MR Past Family History Family History Mother Atrial fibrillation Stroke Father Hypertension Mother Family history of diabetes mellitus Past Surgical History Surgical History History of bilateral tubal ligation History of colonoscopy History of cystoscopy S/P BOTOX INJECTION History of esophagogastroduodenoscopy (EGD) History of total left hip arthroplasty Social History Smoking Status: Never smoker Do You Dip or Chew Tobacco: No Hx Alcohol Use: Yes Alcohol type: wine alcohol intake frequency: other Alcohol Intake Frequency Comment: 2 to 3 a week Hx Substance Use: No substance use type: does not use Physical Exam Vital Signs Last Vital Signs Temp 36.9 C 04/07/19 07:03 Pulse 93 H 04/07/19 09:55 Resp 18 04/07/19 09:55 BP 112/64 04/07/19 09:55 Pulse Ox 94 04/07/19 09:55 Testing Laboratory Results 04/07/19 05:56 04/07/19 05:56 PT 21.7 Seconds (9.0-12.0) H 04/07/19 08:55 INR 2.2 (0.9-1.1) H 04/07/19 08:55 APTT 30.2 Seconds (21.0-31.0) 04/06/19 12:12 Electrocardiogram Date: 04/07/19 Findings: + AFIB @ (92) cannot rule out [place] Chest X-Ray Date: 04/06/19 XR chest 1V portable CLINICAL HISTORY: 73 years-old Female presenting with SOB. TECHNIQUE: Portable upright AP view of the chest was obtained. COMPARISON: 11/09/2017. FINDINGS: Atherosclerosis of the aortic arch. Tortuosity of the descending thoracic aorta. Cardiac silhouette borderline enlarged. No focal opacity. Resolution of prior right pleural effusion. No large effusion or pneumothorax. Degenerative changes of the thoracic spine. Upper abdomen normal. IMPRESSION: 1. Borderline cardiomegaly. No other convincing evidence of acute cardiopulmonary disease. ACT 112: Negative or not required by law. Electronically signed by: Paul Calderon M.D. 04/06/2019 11:40 AM Dictated: 04/06/19 1139 Transcribed: 04/06/191138 XR chest 1V portable CLINICAL HISTORY: 73 years-old Female presenting with SOB. TECHNIQUE: Portable upright AP view of the chest was obtained. COMPARISON: 11/09/2017. FINDINGS: Atherosclerosis of the aortic arch. Tortuosity of the descending thoracic aorta. Cardiac silhouette borderline enlarged. No focal opacity. Resolution of prior right pleural effusion. No large effusion or pneumothorax. Degenerative changes of the thoracic spine. Upper abdomen normal. IMPRESSION: 1. Borderline cardiomegaly. No other convincing evidence of acute cardiopulmonary disease. ACT 112: Negative or not required by law. Electronically signed by: Paul Calderon M.D. 04/06/2019 11:40 AM Dictated: 04/06/19 1139 Transcribed: 04/06/19 113
[2019-04-07] MEDS ORDERED: LIDOCAINE HCL 2% 2 ML VIAL/AMP(20MG/ML) INFIL ONE (11:45)
[2019-04-07] MEDS ORDERED: PROPOFOL IV EMULSION 10 MG/ML 20 ML VIAL IV ONE (11:45)
--- NOTE | 2019-04-07 12:01 | Cardioversion ---
Date of Service April 07, 2019 Electrical Cardioversion Rpt Electrical Cardioversion Report Date of Procedure: April 07, 2019 Pre & Post Diagnosis Preprocedure diagnosis: symptomatic atrial fibrillation Post procedure diagnosis: successful conversion to SR. Procedure Cardioversion: After informed consent was obtained and a time out was performed, the patient's vital signs were monitored in the standard fashion. Sedation was administered by the anesthesia service with the patient receiving 60 mg of IV propofol and 30 mg of IV lidocaine. Synchronized direct current cardioversion was performed with the patient receiving 1 dose of 200 J of biphasic energy with successful conversion to sinus rhythm. Post procedure EKG revealed sinus bradycardia at 56 bpm with stable QTc of 482 ms. Plan: Continue prior to hospitalization doses of metoprolol, sotalol, and coumadin. If feels well after lunch, possible discharge to home. General Dentist/Owner Gómez Jensen DO Core Blower Operator none Estimated Blood Loss 0 Findings Consistent with Post-Op Diagnosis Anesthesia Type MAC Complications none
--- NOTE | 2019-04-07 12:01 | Anesthesiology Progress Note ---
Date of Service April 07, 2019 Anesthesia Post Procedure Vital Signs Vital Signs: Temp Pulse Pulse Resp BP BP BP 04/07/19 09:55 93 H 18 112/64 04/07/19 08:00 83 04/07/19 07:03 36.9 C 106 H 18 131/76 04/07/19 03:19 36.5 C 102 H 18 107/71 04/07/19 00:00 36.9 C 114 H 18 109/66 04/06/19 23:29 107 H 04/06/19 19:13 36.5 C 91 H 18 110/76 04/06/19 15:46 36.3 C L 90 101 H 16 144/80 H 04/06/19 14:11 86 15 119/71 04/06/19 14:00 74 20 118/67 04/06/19 13:50 103 H 20 104/76 04/06/19 13:40 96 H 14 113/76 04/06/19 13:36 103 H 21 126/81 04/06/19 13:30 119 H 21 144/103 H 04/06/19 13:00 109 H 18 117/101 H 04/06/19 12:30 99 H 22 127/95 Pulse Ox 04/07/19 09:55 94 04/07/19 08:00 04/07/19 07:03 94 04/07/19 03:19 93 04/07/19 00:00 95 04/06/19 23:29 04/06/19 19:13 94 04/06/19 15:46 97 04/06/19 14:11 95 04/06/19 14:00 96 04/06/19 13:50 95 04/06/19 13:40 96 04/06/19 13:36 95 04/06/19 13:30 97 04/06/19 13:00 96 04/06/19 12:30 95 Transfer of Care Handoff Completed per policy Notes Mental Status: alert / awake / arousable Patient Amnestic to Procedure: Yes Nausea / Vomiting: adequately controlled Pain: adequately controlled Airway Patency, RR, SpO2: stable & adequate BP & HR: stable & adequate Hydration State: stable & adequate Anesthetic Complications: no major complications apparent and Pt Satisfied with anesthetic care
--- NOTE | 2019-04-07 14:26 | Electrocardiogram Report ---
Test Reason : Blood Pressure : / mmHG Vent. Rate : 092 BPM Atrial Rate : 000 BPM P-R Int : 000 ms QRS Dur : 080 ms QT Int : 398 ms P-R-T Axes : 000 005 079 degrees QTc Int : 492 ms Atrial fibrillation with premature ventricular or aberrantly conducted complexes Poor R wave progression, consider anterior [place] vs. lead placement vs. LVH Abnormal ECG When compared with ECG of 06-APR-2019 12:13, Nonspecific T wave abnormality, improved in Inferior leads Confirmed by Dedrick Damon ([id number]) on 04/07/2019 2:25:43 PM Referred By: REFERRED SELF Confirmed By:Dedrick Damon
--- NOTE | 2019-04-07 14:43 | Electrocardiogram Report ---
Test Reason : Blood Pressure : / mmHG Vent. Rate : 063 BPM Atrial Rate : 051 BPM P-R Int : 174 ms QRS Dur : 088 ms QT Int : 480 ms P-R-T Axes : -24 006 038 degrees QTc Int : 491 ms Sinus bradycardia with Premature atrial complexes and Premature ventricular complexes Prolonged QT Abnormal ECG When compared with ECG of 07-APR-2019 07:11, (unconfirmed) Sinus rhythm has replaced Atrial fibrillation Confirmed by Dedrick Damon ([id number]) on 04/07/2019 2:43:13 PM Referred By: REFERRED SELF Confirmed By:Dedrick Damon
--- NOTE | 2019-04-07 14:50 | Hospitalist Progress Note ---
Date of Service April 07, 2019 Assessment & Plan (1) Rapid atrial fibrillation: History of paroxysmal A. fib/a flutter, admitted with rapid A. fib RVR She has been having symptom of shortness of breath with palpitation for the last 1 week with exertion Was treated with IV Cardizem, Patient is on Coumadin for stroke prophylaxis, INR therapeutic Appreciate input from cardiology, Status post successful DC cardioversion earlier today, Remains in sinus with rate controlled, Denies of any symptom of palpitation dizzy spell lightheadedness shortness of breath or dyspnea on exertion Per cardiology stable to be discharged home with prior cardiac meds (2) Paroxysmal atrial fibrillation: History of paroxysmal A. fib/a flutter Admitted with A. fib RVR Status post DC cardioversion Patient is to continue with beta-jalen and sotalol Chronic anticoagulation Coumadin (3) HTN (hypertension): Blood pressure is controlled (4) Anemia: Has chronic anemia No acute blood loss DVT prophylaxis On Coumadin INR therapeutic CODE STATUS Full Disposition: Stable to be discharged home today Subjective Status post successful cardioversion earlier today Remains in normal sinus rhythm Patient seen at bedside, denies of any palpitation chest heaviness or shortness of breath Feels fine, Stable to be discharged home today Review of Systems Review of Systems: All systems reviewed & are unremarkable except as noted in HPI & below Physical Exam Constitutional: WD/WN, vitals as above Eyes: PERRL, conjunctivae normal, anicteric sclerae ENMT: external ear and nose normal, oropharynx normal Neck: trachea midline, no thyromegaly Respiratory: normal respiratory effort, lungs clear to auscultation Cardiovascular: RRR, no murmur, no edema Gastrointestinal (Abdomen): normal bowel sounds, soft, nontender, no hepatosplenomegaly Musculoskeletal: no cyanosis or clubbing, extremities motor strength 5/5 Skin: no rashes, warm and dry Neurologic: PERRL, EOMI, accommodation nl, no face palsy, no dysarthria Psychiatric: A+Ox3, euthymic affect Results & Data ([facility]) Vital Signs (Past 12 Hours) Vital Signs Temp Pulse Pulse Resp BP Pulse Ox 04/07/19 13:40 71 16 98/64 L 98 04/07/19 13:10 62 16 108/73 96 04/07/19 12:55 64 16 124/58 L 97 04/07/19 12:40 65 16 113/74 96 04/07/19 12:25 36.4 C L 57 L 16 110/63 95 04/07/19 12:10 59 L 18 110/59 L 96 04/07/19 11:55 56 L 18 104/51 L 96 04/07/19 09:55 93 H 18 112/64 94 04/07/19 08:00 83 04/07/19 07:03 36.9 C 106 H 18 131/76 94 04/07/19 03:19 36.5 C 102 H 18 107/71 93 (1) Anemia Anemia type: unspecified type Qualified Code(s): D64.9 - Anemia, unspecified
[2019-04-07 15:02] VITALS: TEMP 98.4; O2SAT 93
[2019-04-07] MEDS: WARFARIN SOD 2.5 MG TAB PO SCH (16:16)
[2019-04-07 17:31] VITALS: BP 109/66; PULSE 59
--- NOTE | 2019-04-07 17:33 | Discharge Summary ---
Date of Service April 07, 2019 Admission HPI Per Admitting Provider She is a 73-year-old female with significant past medical history of paroxysmal atrial fibrillation on sotalol and beta-jalen on Coumadin, hypertension and chronic anemia has been complaining of shortness of breath with palpitation with exertion for the last 1 week. She denies any chest pain, dizziness or any nausea and or vomiting associated with it. She has been complaining of more shortness of breath with exertion denies any weight gain and/or swelling of the legs. No fever and/or chills, no cough or phlegm, no problem with urine and her bowel habit. In the ER she was noted to have a heart rate of around 117 and the EKG did show A. fib with rate of 102. She was started with intravenous Cardizem and was admitted to telemetry unit for continuation of care. Principal Diagnosis Rapid A. fib RVR, status post successful cardioversion Discharge Exam Constitutional WD/WN, vitals as above Eyes PERRL, conjunctivae normal, anicteric sclerae ENMT external ear and nose normal, oropharynx normal Neck trachea midline, no thyromegaly Respiratory normal respiratory effort, lungs clear to auscultation Cardiovascular RRR, no murmur, no edema Gastrointestinal (Abdomen) normal bowel sounds, soft, nontender, no hepatosplenomegaly Musculoskeletal no cyanosis or clubbing, extremities motor strength 5/5 Skin no rashes, warm and dry Neurologic PERRL, EOMI, accommodation nl, no face palsy, no dysarthria Psychiatric A+Ox3, euthymic affect Discharge Data Allergies Allergy/AdvReac Type Severity Reaction Status Date / Time propranolol Allergy Mild bronchospasms Verified 04/06/19 12:04 with higher doses Iodinated Contrast Media Allergy Unknown HAD 1 WELT Verified 04/06/19 12:04 on one occasion nickel Allergy Unknown contact Verified 04/06/19 12:04 dermatitis Consultations 04/06/19 13:07 ED Decision to Admit Stat 04/06/19 17:24 Consult Cardiology Routine 04/07/19 08:40 Consult Anesthesiology Routine Procedures Performed Operation Date: 04/07/19 12:00 Actual Procedures p Cardioversion - Gómez Jensen DO Hospital Course (1) Rapid atrial fibrillation: History of paroxysmal A. fib/a flutter, admitted with rapid A. fib RVR She has been having symptom of shortness of breath with palpitation for the last 1 week with exertion Was treated with IV Cardizem, Patient is on Coumadin for stroke prophylaxis, INR therapeutic Appreciate input from cardiology, Status post successful DC cardioversion earlier today, Remains in sinus with rate controlled, Denies of any symptom of palpitation dizzy spell lightheadedness shortness of breath or dyspnea on exertion Per cardiology stable to be discharged home with prior cardiac meds (2) Paroxysmal atrial fibrillation: History of paroxysmal A. fib/a flutter Admitted with A. fib RVR Status post DC cardioversion Patient is to continue with beta-jalen and sotalol Chronic anticoagulation Coumadin (3) HTN (hypertension): Blood pressure is controlled (4) Anemia: Has chronic anemia No acute blood loss DVT prophylaxis On Coumadin INR therapeutic CODE STATUS Full Disposition: Stable to be discharged home today Total Time Total Time Spent Total Time Spent (In Minutes): Approximately 35 minutes Total Time Includes: Examination of the Patient, Discharge Planning, Medication Reconciliation and Communication With Other Providers Discharge Plan Discharge Items Patient Disposition: Home - Self-Care Reason For Visit: AF WITH RVR Discharge Diagnosis: A. fib/a flutter with RVR: Successful cardioversion, on normal sinus rhythm now Activity: Resume your previous activity Non-emergency contact: Primary Care Provider and Template Inspector Call non-emergency contact if: you have any medication questions Follow-up/Referrals: Mare Wright DO [Primary Care Provider] - 04/13/19 12:45 pm Diet: Heart Healthy Addtl Attending Provider Instructions: Follow-up with cardiology Dr. Jamel Zhou as per schedule Pending Studies at Discharge: No Stand-Alone Forms: My [facility], Smoking Cessation Medications and DC Order Prescriptions: Continued sotalol 80 mg Tablet 80 mg PO BID Qty: 60 RF: 6 amlodipine 5 mg tablet 5 mg PO DAILY RF: 0 losartan 100 mg tablet 100 mg PO DAILY RF: 0 metoprolol succinate 25 mg tablet extended release 24 hr 25 mg PO DAILY RF: 0 cetirizine [Zyrtec] 10 mg Tablet 5 mg PO DAILY PRN (Reason: allergies) RF: 0 alendronate [Fosamax] 70 mg Tablet 1 tab PO WK RF: 0 warfarin 2.5 mg Tablet 2.5 mg PO SUMOTUWETHFR RF: 0 lysine 1,000 mg Tablet 1,000 mg PO QAM RF: 0 aspirin 81 mg Tablet,Delayed Release (Dr/Ec) 81 mg PO QAM RF: 0 levothyroxine 25 mcg Tablet 25 mcg PO QAM RF: 0 fluticasone propionate [Flonase Allergy Relief] 50 mcg/actuation Aubrey,Suspension 1 spray INTRANASAL DAILY PRN (Reason: allergies) RF: 0 Prilosec OTC 20 mg Tablet,Delayed Release (Dr/Ec) 20 mg PO QAM RF: 0 Calcium 600 + D(3) 600 mg calcium- 200 unit Capsule 1 tab PO BID RF: 0 valacyclovir 1 gram Tablet 2,000 mg PO Q12H PRN (Reason: Cold Sores) RF: 0 Discharge Orders: Discharge Order (Routine); Ordered 04/07/19 Ordered By: Ramona Polanco Admission Data Admit Date/Time: 04/06/19 13:53 Attending Provider: Ramona Polanco Admit Provider: Tyler Mcginnis Primary Care Provider: Mare Wright Other Providers: Tyler Mcginnis ; Gómez Jensen ; Luis M Cho Other Interventions: Discharge Summary Assessment (RN) Last Done: 04/07/19 17:29
== END 2019-04-07 18:04 | disposition home or self-care (01) | DRG 310 ==
LOC: ED 10:47 → 2S 13:53 → SUATTDRO 13:53 → 2S 14:27

== ENCOUNTER 2019-07-30 17:37 | Inpatient (IN) ==
[2019-07-30] MEDS ORDERED: SODIUM CHLORIDE 0.9% 250 ML IV PRN ×2 (18:29→22:35)
--- NOTE | 2019-07-30 18:38 | XRay Report ---
XR chest 1V portable CLINICAL HISTORY: weakness dyspnea COMPARISON STUDY: 04/06/2019 FINDINGS: Mild stable cardiomegaly. Rectal infiltrate left mid lung. Right lung is clear. Diaphragms are smooth. IMPRESSION: Infiltrate left midlung ACT 112: Negative or not required by law. The above report was generated using voice recognition software. It may contain grammatical, syntax or spelling errors. Electronically signed by: Mu Mcneil M.D. 07/30/2019 6:37 PM
[2019-07-30 18:50] LABS: Mean Corpuscular Hgb Conc 32.4 g/dL (32-36); Mean Platelet Volume 9.2 fL (7.4-10.4); Nucleated RBC # (auto) 0.22 K/uL (0-0); Nucleated RBC % (auto) 2.5 %; Platelet Count 347 K/uL (130-400)
[2019-07-30 19:02] LABS: Appearance Urine Clear (Clear); Bilirubin Urine Negative (Negative); Blood Urine Negative (Negative); Color Urine Yellow; Glucose Urine UA Negative (Negative); Ketones Urine Negative (Negative); Leukocyte Esterase Urine Trace (Negative); Nitrite Urine Negative (Negative); Protein Urine Trace (Negative); Specific Gravity Urine 1.007 (1.000-1.030); Urobilinogen Urine Negative (Negative)
[2019-07-30 19:07] LABS: Albumin Level 3.9 gm/dl (3.4-5.0); BUN Creatinine Ratio 17.4 (10-20); Calcium 9.8 mg/dl (8.5-10.1); Creatinine Clr Calc Pharmacy 66.9 ml/min; Est GFR (African American) 101.3; Est GFR (Non-African American) 87.4; Potassium 3.8 mmol/L (3.5-5.1)
[2019-07-30 19:18] LABS: Bacteria Urine Automated Negative (Negative); RBC Urine Automated 0-4 /hpf (0-4)
[2019-07-30 19:18] LABS: Albumin Globulin Ratio 0.9 (0.9-2); Bilirubin,Total 0.6 mg/dl (0.2-1); Globulin 4.4 gm/dl (2.5-4.0); Thyroid Stimulating Hormone 1.78 uIu/ml (0.300-4.500); Total Protein 8.3 gm/dl (6.4-8.2)
[2019-07-30 19:35] LABS: ALC (manual) 3.94 K/uL (1.2-3.4); ANC (manual) 4.03 K/uL (1.4-6.5); Anisocytosis Present; Basophils # (manual) 0.08 K/uL (0-0.2); Basophils % (manual) 0.9 %; Eosinophils # (manual) 0.25 K/uL (0-0.5); Eosinophils % (manual) 2.8 %; Hematocrit (blood only) 25.3 % (37-47); Hemoglobin 8.2 g/dL (12.0-16.0); Lymphocytes # (manual) 2.55 K/uL (1.2-3.4); Lymphocytes % (manual) 28.7 %; Macrocytosis Present; Mean Corpuscular Hemoglobin 34.7 pg (25-34); Mean Corpuscular Volume 107.2 fL (80-100); Monocytes # (manual) 0.58 K/uL (0.11-0.59); Monocytes % (manual) 6.5 %; Neutrophils # (manual) 4.03 K/uL (1.4-6.5); Neutrophils % (manual) 45.4 %; Ovalocytes 1+; RDW Coefficient of Variation 17.2 % (11.5-14.5); Reactive Lymphocytes # (manual) 1.39 K/uL; Reactive Lymphocytes % (manual) 15.7 %; Red Blood Count 2.36 M/uL (4.2-5.4); White Blood Count 8.88 K/uL (4.8-10.8)
--- NOTE | 2019-07-30 19:58 | Emergency Department Note ---
History of Present Illness General Chief complaint: Referred by Doctor Stated complaint: Referred by Doctor Time Seen by Provider: 07/30/19 18:28 Source: patient Mode of arrival: ambulatory Limitations: no limitations History of Present Illness Provider complaint: Anemia, exertional dyspnea Onset (ago): week(s) 2 This is a 74-year-old female who presents to the ED with a chief complaint of anemia. The patient states that she has some outpatient blood work ordered for preoperative testing for hip replacement. She states that her hemoglobin came back showing anemia. She was sent here for evaluation. The patient does take Coumadin. Her INR was 2.52 days ago. Her hemoglobin was 7.72 days ago. The patient did state that she felt like she might have had some brownish-red blood in her stool last month. She states that she has glaucoma and her vision is not very good. The patient also reports some shortness of breath over the past couple of months with exertion. She has no other complaints. Her physical exam was relatively benign. She does seem to be a little tachypneic. The nurse stated that she desaturated with ambulation but did not document how low. Home Medications Home Medications Medication Instructions Recorded Confirmed Type Calcium 600 + D(3) 1 tab PO BID 12/18/17 07/20/19 History Prilosec OTC 20 mg PO QAM 12/18/17 07/20/19 History cetirizine [Zyrtec] 5 mg PO DAILY PRN 12/18/17 07/20/19 History fluticasone propionate [Flonase 1 spray INTRANASAL DAILY PRN 12/18/17 07/20/19 History Allergy Relief] levothyroxine 25 mcg PO QAM 12/18/17 07/20/19 History lysine 1,000 mg PO QAM 12/18/17 07/20/19 History valacyclovir 2,000 mg PO Q12H PRN 12/18/17 07/20/19 History warfarin 2.5 mg PO SUMOTUWETHFR 12/18/17 07/20/19 History sotalol 80 mg PO BID #60 tab 01/29/18 07/20/19 Rx amlodipine 5 mg PO QAM 04/06/19 07/20/19 History metoprolol succinate 25 mg PO BID 04/06/19 07/20/19 History albuterol sulfate [ProAir HFA] 1 inh INHALATION QID PRN 07/20/19 07/20/19 His tory brimonidine-timolol [Combigan] 1 drp OPB BID 07/20/19 07/20/19 History brinzolamide [Azopt] 1 drp OPB BID 07/20/19 07/20/19 History cyanocobalamin (vitamin B-12) 1,000 mcg SUBLINGUAL QAM 07/20/19 07/20/19 History lorazepam 0.5 mg PO DAILY PRN 07/20/19 07/20/19 History losartan 50 mg PO QAM 07/20/19 07/20/19 History netarsudil-latanoprost [Rocklatan] 1 drp OPL HS 07/20/19 07/20/19 History Allergies Allergy/AdvReac Type Severity Reaction Status Date / Time Iodinated Contrast Media Allergy Intermediate HAD 1 WELT Verified 07/20/19 08:01 on one occasion nickel Allergy Mild contact Verified 07/20/19 08:01 dermatitis propranolol Allergy Mild bronchospasms Verified 07/20/19 08:01 with higher doses Past Med/Surg History Medical History Anxiety Atrial fibrillation with rapid ventricular response Sinus rhythm on most recent EKGs Degenerative disc disease GERD (gastroesophageal reflux disease) Glaucoma History of cardioversion Multiple unsuccessful. HTN (hypertension) Hx of bronchitis 11/2017 Hx of migraines Hx of skin cancer, basal cell NOSE Hypothyroidism Legally blind Leukocytosis (leucocytosis) Osteoporosis Pulmonary HTN PASP 55-60 mmHg on echo 07/22/19 Seasonal allergies USES INHALER PRN D/T ALLERGIES Stress bladder incontinence, female HX BOTOX INJECTION TREATMENT Valvular disease MILD TR/MR Surgical History H/O eye surgery RT EYE (TUBE SHUNT WITH FILTER WITH GLAUCOMA) History of bilateral tubal ligation History of cataract surgery RT/LEFT History of colonoscopy History of cystoscopy S/P BOTOX INJECTION History of dilatation and curettage History of esophagogastroduodenoscopy (EGD) History of total left hip arthroplasty [place] teeth removed Family History Mother Atrial fibrillation Stroke Family history of diabetes mellitus Father Hypertension Mother No problems noted. Social History Preferred Language: Bangladeshi Communication Ability: Effective Intake Nurse Required: No Beliefs That Will Affect Care: None marital status: Current Living Situation: Spouse Feels Safe at Home: Yes Smoking Status: Never smoker Second Hand Exposure: Yes ( A CHILD FOR SHORT TIME) ; Hx Alcohol Use: Yes Alcohol type: beer and wine Hx Substance Use: No Review of Systems A total of 10 systems reviewed and were otherwise negative Physical Exam Vital Signs Vital Signs - 24 hr 07/30/19 17:52 07/30/19 18:30 Temperature 36.9 C Temperature Source Oral Pulse Rate 97 H Pulse Rhythm Regular Pulse Strength Normal Respiratory Rate 20 Respiratory Effort / Characteristics Non-Labored Spontaneous Respiratory Depth Normal Respiratory Pattern Regular Blood Pressure 139/67 Blood Pressure Mean 91 Blood Pressure Position Sitting Pulse Oximetry 97 96 Oxygen Delivery Method Room Air Room Air Sepsis Recent Fever Within 48 Hours No Sepsis Action Taken by Nursing No Action Required CONSTITUTIONAL/VITAL SIGNS: Reviewed / noted above. GENERAL: Non-toxic in appearance. INTEGUMENTARY: Warm, dry, and [place]. HEAD: Normocephalic. EYES: without scleral icterus or trauma. ENT/OROPHARYNX: clear and moist. LYMPHADENOPATHY/NECK: Is supple without lymphadenopathy or meningismus. RESPIRATORY: Lungs clear and equal. CARDIOVASCULAR: Regular rate and rhythm. GI/ABDOMEN: Soft and nontender. No organomegaly or pulsatile mass. No rebound or guarding. Normal bowel sounds. EXTREMITIES: Warm and well perfused. BACK: No CVA tenderness. NEUROLOGICAL: Intact without focal deficits. PSYCHIATRIC: normal affect. MUSCULOSKELETAL: Normally developed with good muscle tone. TRIAGE NURSING DOCUMENTATION REVIEWED. Critical Care Time Critical Care Time: Yes Total Critical Care Time: 33 I have personally spent 33 minutes of critical care time in the direct management of this patient. This includes bedside care, interpretation of diagnostic studies, and testing, discussion with consultants, patient, and family members, and other required patient management activities. This 33 minutes is in excess of all separately billable procedures. Medical Decision Making Differential Diagnosis Differential includes acute coronary syndrome, myocardial infarction, CVA, TIA, anemia, infection, pneumonia, UTI, pyelonephritis, poor nutrition, dehydration, electrolyte disturbance,hypoglycemia. Medical Records Attestation: I reviewed the patient's medical records. Home Medications Current Medication List: was personally reviewed by me Laboratory Data Attestation: I reviewed the patient's lab results. Result diagrams: 07/30/19 18:41 07/30/19 18:41 Lab Results 07/30/19 07/30/19 07/30/19 Range/Units 18:41 18:41 18:41 WBC 8.88 (4.8-10.8) K/uL RBC 2.36 L (4.2-5.4) M/uL Hgb 8.2 L (12.0-16.0) g/dL Hct 25.3 L (37-47) % MCV 107.2 H (80-100) fL MCH 34.7 H (25-34) pg MCHC 32.4 (32-36) g/dL RDW Std Deviation 67.0 H (36.4-46.3) fL RDW Coeff of Eunice 17.2 H (11.5-14.5) % Plt Count 347 (130-400) K/uL MPV 9.2 (7.4-10.4) fL Absolute Nucleated RBC 0.22 H (0-0) K/uL Nucleated RBC % (auto) 2.5 % Neutrophils % (Manual) 45.4 % Lymphocytes % (Manual) 28.7 % Reactive Lymphs % (Man) 15.7 % Monocytes % (Manual) 6.5 % Eosinophils % (Manual) 2.8 % Basophils % (Manual) 0.9 % Neutrophils # (Manual) 4.03 (1.4-6.5) K/uL Total Absolute Neuts 4.03 (1.4-6.5) K/uL Lymphocytes # (Manual) 2.55 (1.2-3.4) K/uL Reactive Lymphs # 1.39 K/uL Total Abs Lymphocytes 3.94 H (1.2-3.4) K/uL Monocytes # (Manual) 0.58 (0.11-0.59) K/uL Eosinophils # (Manual) 0.25 (0-0.5) K/uL Basophils # (Manual) 0.08 (0-0.2) K/uL Anisocytosis Present Macrocytosis Present Ovalocytes 1+ Sodium 135 L (136-145) mmol/L Potassium 3.8 (3.5-5.1) mmol/L Chloride 104 (98-107) mmol/L Carbon Dioxide 25 (21-32) mmol/L Anion Gap 7.0 (3-11) BUN 12 (7-18) mg/dl Creatinine 0.68 (0.6-1.2) mg/dl Est Cr Clr Drug Dosing 66.9 ml/min Est GFR ( Amer) 101.3 Est GFR (Non-Af Amer) 87.4 BUN/Creatinine Ratio 17.4 (10-20) Glucose 113 H (70-99) mg/dl Calcium 9.8 (8.5-10.1) mg/dl Total Bilirubin 0.6 (0.2-1) mg/dl AST 38 H (15-37) U/L ALT 35 (12-78) U/L Alkaline Phosphatase 260 H (45-117) U/L Total Creatine Kinase 47 (26-192) U/L Total Protein 8.3 H (6.4-8.2) gm/dl Albumin 3.9 (3.4-5.0) gm/dl Globulin 4.4 H (2.5-4.0) gm/dl Albumin/Globulin Ratio 0.9 (0.9-2) TSH 1.780 (0.300-4.500) uIu/ml Urine Color Urine Appearance (Clear) Urine pH (4.5-7.5) Ur Specific [place] (1.000-1.030) Urine Protein (Negative) Urine Glucose (UA) (Negative) Urine Ketones (Negative) Urine Blood (Negative) Urine Nitrite (Negative) Urine Bilirubin (Negative) Urine Urobilinogen (Negative) Ur Leukocyte Esterase (Negative) Urine WBC (Auto) (0-5) /hpf Urine RBC (Auto) (0-4) /hpf U Hyaline Cast (Auto) U Epithel Cells (Auto) (0-5) /lpf Urine Bacteria (Auto) (Negative) Blood Type A Positive Antibody Screen NEGATIVE Crossmatch See Detail 07/30/19 Range/Units 18:45 WBC (4.8-10.8) K/uL RBC (4.2-5.4) M/uL Hgb (12.0-16.0) g/dL Hct (37-47) % MCV (80-100) fL MCH (25-34) pg MCHC (32-36) g/dL RDW Std Deviation (36.4-46.3) fL RDW Coeff of Eunice (11.5-14.5) % Plt Count (130-400) K/uL MPV (7.4-10.4) fL Absolute Nucleated RBC (0-0) K/uL Nucleated RBC % (auto) % Neutrophils % (Manual) % Lymphocytes % (Manual) % Reactive Lymphs % (Man) % Monocytes % (Manual) % Eosinophils % (Manual) % Basophils % (Manual) % Neutrophils # (Manual) (1.4-6.5) K/uL Total Absolute Neuts (1.4-6.5) K/uL Lymphocytes # (Manual) (1.2-3.4) K/uL Reactive Lymphs # K/uL Total Abs Lymphocytes (1.2-3.4) K/uL Monocytes # (Manual) (0.11-0.59) K/uL Eosinophils # (Manual) (0-0.5) K/uL Basophils # (Manual) (0-0.2) K/uL Anisocytosis Macrocytosis Ovalocytes Sodium (136-145) mmol/L Potassium (3.5-5.1) mmol/L Chloride (98-107) mmol/L Carbon Dioxide (21-32) mmol/L Anion Gap (3-11) BUN (7-18) mg/dl Creatinine (0.6-1.2) mg/dl Est Cr Clr Drug Dosing ml/min Est GFR ( Amer) Est GFR (Non-Af Amer) BUN/Creatinine Ratio (10-20) Glucose (70-99) mg/dl Calcium (8.5-10.1) mg/dl Total Bilirubin (0.2-1) mg/dl AST (15-37) U/L ALT (12-78) U/L Alkaline Phosphatase (45-117) U/L Total Creatine Kinase (26-192) U/L Total Protein (6.4-8.2) gm/dl Albumin (3.4-5.0) gm/dl Globulin (2.5-4.0) gm/dl Albumin/Globulin Ratio (0.9-2) TSH (0.300-4.500) uIu/ml Urine Color Yellow Urine Appearance Clear (Clear) Urine pH 7.0 (4.5-7.5) Ur Specific [place] 1.007 (1.000-1.030) Urine Protein Trace H (Negative) Urine Glucose (UA) Negative (Negative) Urine Ketones Negative (Negative) Urine Blood Negative (Negative) Urine Nitrite Negative (Negative) Urine Bilirubin Negative (Negative) Urine Urobilinogen Negative (Negative) Ur Leukocyte Esterase Trace H (Negative) Urine WBC (Auto) 1-5 (0-5) /hpf Urine RBC (Auto) 0-4 (0-4) /hpf U Hyaline Cast (Auto) Not Reportable U Epithel Cells (Auto) 10-20 H (0-5) /lpf Urine Bacteria (Auto) Negative (Negative) Blood Type Antibody Screen Crossmatch Imaging Data Attestation: I personally reviewed and interpreted this imaging study as follows: My Impression: Consolidation left midlung Radiologist's Impression: Chest x-ray: IMPRESSION: Infiltrate left midlung Blood Pressure Blood Pressure Findings: Normal blood pressure MDM Narrative This is a 74-year-old female who presents to the ED with a chief complaint of anemia. The patient states that she has some outpatient blood work ordered for preoperative testing for hip replacement. She states that her hemoglobin came back showing anemia. She was sent here for evaluation. The patient does take Coumadin. Her INR was 2.52 days ago. Her hemoglobin was 7.72 days ago. The patient did state that she felt like she might have had some brownish-red blood in her stool last month. She states that she has glaucoma and her vision is not very good. The patient also reports some shortness of breath over the past couple of months with exertion. She has no other complaints. Her physical exam was relatively benign. She does seem to be a little tachypneic. The nurse stated that she desaturated with ambulation but did not document how low. The patient's exam was relatively unremarkable. She does appear to be slightly tachypneic and with minimal exertion, she seems somewhat short of breath. The patient's hemoglobin today is 8.2. Her complete metabolic panel was unremarkab le. TSH was normal. Chest x-ray reveals an infiltrate in the left midlung. Because of the patient's anemia, she was ordered a unit of blood. She had guaiac testing of her stool today that was guaiac negative. I will speak with the hospitalist about inpatient evaluation for the patient's pneumonia and anemia. The patient was given IV fluids as well as IV Rocephin and IV Zithromax in the ED. He was also given 1 unit of blood. Impression & Plan Left lower lobe pneumonia, Anemia Discharge Plan Visit Data Chief Complaint: Referred by Doctor Stated Complaint: Referred by Doctor ED Provider: Jignesh Fallon Discharge Problem: Left lower lobe pneumonia, Anemia Patient Disposition: Being Evaluated by Hospitalist Condition: Fair Forms Stand Alone Forms: [facility], Virtual Emergency Department, Important Visit Information Prescriptions Prescriptions: No Action sotalol 80 mg Tablet 80 mg PO BID Qty: 60 RF: 6 amlodipine 5 mg tablet 5 mg PO QAM RF: 0 metoprolol succinate 25 mg tablet extended release 24 hr 25 mg PO BID RF: 0 cetirizine [Zyrtec] 10 mg Tablet 5 mg PO DAILY PRN (Reason: allergies) RF: 0 warfarin 2.5 mg Tablet 2.5 mg PO SUMOTUWETHFR RF: 0 lysine 1,000 mg Tablet 1,000 mg PO QAM RF: 0 levothyroxine 25 mcg Tablet 25 mcg PO QAM RF: 0 fluticasone propionate [Flonase Allergy Relief] 50 mcg/actuation [place],Suspension 1 spray INTRANASAL DAILY PRN (Reason: allergies) RF: 0 Prilosec OTC 20 mg Tablet,Delayed Release (Dr/Ec) 20 mg PO QAM RF: 0 Calcium 600 + D(3) 600 mg calcium- 200 unit Capsule 1 tab PO BID RF: 0 valacyclovir 1 gram Tablet 2,000 mg PO Q12H PRN (Reason: Cold Sores) RF: 0 losartan 50 mg Tablet 50 mg PO QAM RF: 0 albuterol sulfate [ProAir HFA] 90 mcg/actuation Hfa Aerosol Inhaler 1 inh INHALATION QID PRN (Reason: SHORT OF BREATH) RF: 0 lorazepam 0.5 mg Tablet 0.5 mg PO DAILY PRN (Reason: Anxiety) RF: 0 Azopt 1 % Drops,Suspension 1 drp OPB BID RF: 0 Combigan 0.2-0.5 % Drops 1 drp OPB BID RF: 0 Rocklatan 0.02-0.005 % Drops 1 drp OPL HS RF: 0 cyanocobalamin (vitamin B-12) 1,000 mcg Tablet, Sublingual 1,000 mcg SUBLINGUAL QAM RF: 0 Referrals Referrals: Wright,Mare M., DO [Primary Care Provider] - Discharge Problem: Left lower lobe pneumonia Qualifiers: Pneumonia type: due to unspecified organism Qualified Code(s): J18.9 - Pneumonia, unspecified organism Anemia Qualifiers: Anemia type: unspecified type Qualified Code(s): D64.9 - Anemia, unspecified
[2019-07-30] MEDS ORDERED: cefTRIAXone SODIUM 1,000 MG/50 ML BAG IV STA (20:15)
[2019-07-30] MEDS ORDERED: AZITHROMYCIN 500 MG in DEXTROSE 5% 250 ML IV ONE (20:15)
[2019-07-30 21:35] LABS: INR 2.8 (0.9-1.1); Partial Thromboplastin Ratio 1.5; Partial Thromboplastin Time 40.6 Seconds (21.0-31.0); Prothrombin Time 27.9 Seconds (9.0-12.0)
[2019-07-30 21:41] LABS: Ferritin 419.5 ng/ml (8-388)
[2019-07-30] MEDS ORDERED: NITROGLYCERIN SL 0.4 MG/TAB TAB SL PRN (22:35)
[2019-07-30] MEDS ORDERED: CETIRIZINE HCL 10 MG TABLET PO PRN (22:35)
[2019-07-30] MEDS ORDERED: FLUTICASONE PROPIONATE NA SPR 16 GM BTL PRN (22:35)
[2019-07-30] MEDS ORDERED: ALBUT/IPRATROP 3MG/0.5MG NEB 3 ML VIAL NEB PRN (22:35)
[2019-07-30] MEDS ORDERED: ONDANSETRON INJ 2 MG/ML 2 ML VIAL IV PRN (22:35)
[2019-07-30] MEDS ORDERED: ALBUTEROL HFA 8 GM INHALER INH PRN (22:39)
[2019-07-30] MEDS: SODIUM CHLORIDE 0.9% 1000ML 1,000 ML IV SCH (23:20)
[2019-07-30] MEDS: BRINZOLAMIDE (AZOPT) OPS 10 ML BTL OPB SCH (23:28)
[2019-07-30] MEDS: SOTALOL HCL 80 MG TAB PO SCH (23:30)
[2019-07-30] MEDS: PANTOprazole 40 MG in SYRINGE 0 ML IV SCH (23:31)
[2019-07-30] MEDS: METOPROLOL SUCC 25MG EXT REL TAB PO SCH (23:31)
--- NOTE | 2019-07-30 23:35 | History and Physical Report ---
DATE OF ADMISSION: 07/30/2019 CHIEF COMPLAINT: Shortness of breath on exertion. HISTORY OF PRESENT ILLNESS: A 74-year-old female with past medical history significant for COPD, hypothyroidism, allergic rhinitis, paroxysmal atrial fibrillation, pulmonary hypertension, essential hypertension, GERD, primary open-angle glaucoma, history of migraines, anxiety presents with shortness of breath on exertion. The patient states she is having lately shortness of breath on exertion. She is supposed to get right hip surgery on 08/13/2019 and she went for preoperative evaluation and she was found to have hemoglobin of 7.7. She was advised to come to the ER. The patient says about a month ago she had reddish brown stool, one episode, but she attributed it to the food she ate that night, but she did not notice any black stools or blood in the stool since then. No hematuria, no burning micturition. Some nausea, but no vomiting. The patient is having some back pain since few months since then she lost appetite and lost about 30 pounds. Denies any chest pain, no shortness of breath. She has some occasional cough from her allergies, some runny nose, some on and off allergies. No sore throat, no difficulty swallowing. No headache, no dizziness, no blurred visions, no earache. No rash. Ambulates with the help of walker. No loss of smell or taste. ALLERGIES: INDERAL, NICKEL. PAST MEDICAL HISTORY: As mentioned above. PAST SURGICAL HISTORY: Colonoscopy, cystoscopy, EGDs, surgery for glaucoma x3, ligation of the oviducts, removal of cataracts. MEDICATIONS: The patient is on Ativan 0.5 mg p.o. q. 6 hours p.r.n., Flexeril 5 mg 1-2 tablets every 8 hours p.r.n., Coumadin 2.5 mg as directed, vitamin B12 2500 mcg sublingual daily, sotalol 80 mg p.o. b.i.d., tramadol 50 mg every 6 hours p.r.n., Flonase 50 mcg 2 sprays in each nostril p.r.n., losartan 50 mg p.o. daily, Toprol-XL 25 mg p.o. b.i.d., omeprazole 20 mg p.o. daily, Pred Forte 1% ophthalmic solution, albuterol 2 puffs every 4 hours p.r.n., Rocklatan 0.02%-0.005% solution instilled into each eye, amlodipine 5 mg p.o. daily, levothyroxine 25 mcg p.o. daily, DuoNebs q. 6 hours p.r.n., cetirizine 10 mg p.o. daily p.r.n., Azopt 1% ophthalmic solution t.i.d., Combigan 0.2%-0.5% ophthalmic solution twice daily, calcium plus D 1 tablet b.i.d., lysine 500 mg p.o. daily. FAMILY HISTORY: Significant for mother has CHF, hypertension, stroke, thyroid disorder, melanoma; father has hypertension; sister has thyroid disorders. SOCIAL HISTORY: No smoking. Alcohol rare. No drug use. REVIEW OF SYSTEMS: As per HPI. Rest of the review of systems negative. PHYSICAL EXAMINATION: GENERAL: The patient is of moderate build, not in acute distress. VITAL SIGNS: Temperature 36.7, pulse 79, respiratory rate 24, blood pressure 159/77, oxygen 93% on room air. HEENT: No pallor. Pupils equal, round, and reactive to light. Extraocular muscles intact. NECK: No JVD, no neck masses. CARDIOVASCULAR: S1, S2 heard, regular rate and rhythm, no murmur, no gallop. RESPIRATORY SYSTEM: Normal AP diameter. No accessory muscle use. No wheezing, no crackles. ABDOMEN: Soft, bowel sounds present, nontender. No distention. CENTRAL NERVOUS SYSTEM: Cranial nerves II-XII grossly intact. Nonfocal. EXTREMITIES: Mild pedal edema present, no erythema seen. LABORATORY DATA: WBC 8.8, hemoglobin 8.2, hematocrit 25.3, platelets 347. Sodium 135, potassium 3.8, chloride 104, bicarbonate 25, BUN 12, creatinine 0.6, serum glucose 113, calcium 9.8, total bilirubin 0.6, AST 38, ALT 35, alkaline phosphatase 260, total creatinine kinase 47. TSH 1.7. Urinalysis, trace for leukocyte esterase. IMAGING DATA: Chest x-ray, infiltrate, left mid lung. ASSESSMENT AND PLAN: This is a 74-year-old female who presents with shortness of breath on exertion and found to have anemia. 1. Shortness of breath on exertion, most likely secondary to anemia, hemoglobin outpatient of 7.7 and 8.2 in the ER. She is on Coumadin. Hemoccult was negative in the ER, but we will check stool for Hemoccult again and follow the INR. She is getting 1 unit of PRBCs. We will follow repeat labs in the a.m. We will place on IV Protonix 40 b.i.d., n.p.o., and consult GI. On gentle fluids. Monitor in the Med/Surg tele. 2. Possible pneumonia, right mid lung infiltrate on chest x-ray. The patient is afebrile, no leukocytosis, but empirically treated with Rocephin and doxycycline and follow the response. Could be contributing to her shortness of breath. No exposure to COVID. 3. History of paroxysmal atrial fibrillation and last in April she was in the hospital and she was status post cardioversion at that time. She is on sotalol, metoprolol, . She is on Coumadin, which we will hold for anemia and follow the PT/INR. 4. History of glaucoma. Continue her home eyedrops. 5. Hypothyroidism. Continue Synthroid. 6. Hypertension. Continue losartan, Toprol-XL. We will monitor the blood pressure. 7. History of chronic obstructive pulmonary disease. Continue inhalers and nebs p.r.n. 8. Anxiety, Ativan p.r.n. 9. Deep venous thrombosis prophylaxis, sequential compression devices for now. 10. Disposition: Admit to med/surg tele. PT and OT prior to discharge. Social service to help with discharge planning. Code status, full code as per my discussion with the patient. ALIZE
[2019-07-31] MEDS ORDERED: [UNRECOGNIZED DRUG - REMARK] SCH
[2019-07-31] MEDS: ACETAMINOPHEN 325 MG TAB PO PRN ×3 (00:14→21:57)
[2019-07-31] MEDS: DOXYCYCLINE HYCLATE 100 MG in DEXTROSE 5% 100 ML IV SCH ×2 (05:36→17:44)
[2019-07-31] MEDS: LEVOTHYROXINE SODIUM 25 MCG TABLET PO SCH (05:38)
[2019-07-31 07:47] LABS: Hematocrit (blood only) 24.6 % (37-47); Mean Corpuscular Hemoglobin 32.8 pg (25-34); Mean Corpuscular Hgb Conc 32.5 g/dL (32-36); Mean Corpuscular Volume 100.8 fL (80-100); Nucleated RBC # (auto) 0.07 K/uL (0-0); Nucleated RBC % (auto) 1.5 %; Platelet Count 249 K/uL (130-400); RDW Coefficient of Variation 21.5 % (11.5-14.5); RDW Standard Deviation 78.5 fL (36.4-46.3); Red Blood Count 2.44 M/uL (4.2-5.4); White Blood Count 5.02 K/uL (4.8-10.8)
[2019-07-31 07:59] LABS: BUN Creatinine Ratio 17.7 (10-20); Calcium 9.2 mg/dl (8.5-10.1); Creatinine Clr Calc Pharmacy 83.1 ml/min; Est GFR (African American) 109.9; Est GFR (Non-African American) 94.9; Magnesium 2.1 mg/dl (1.8-2.4); Potassium 3.7 mmol/L (3.5-5.1)
[2019-07-31 08:00] LABS: INR 2.7 (0.9-1.1); Prothrombin Time 26.6 Seconds (9.0-12.0)
[2019-07-31 08:42] LABS: Folate (Folic Acid) 15.39 ng/ml (>5.38)
[2019-07-31 08:45] LABS: ALC (manual) 1.56 K/uL (1.2-3.4); ANC (manual) 2.56 K/uL (1.4-6.5); Blast # (manual) 0.05 K/uL (0-0); Lymphocytes # (manual) 1.31 K/uL (1.2-3.4); Monocytes # (manual) 0.65 K/uL (0.11-0.59); Neutrophils # (manual) 2.56 K/uL (1.4-6.5); Reactive Lymphocytes # (manual) 0.25 K/uL
[2019-07-31] MEDS: BRIMONIDINE TARTRATE/TIMOLOL OPB SCH ×2 (08:49→20:05)
[2019-07-31] MEDS: AMLODIPINE BESYLATE 5 MG TAB PO SCH (08:50)
[2019-07-31] MEDS: BRINZOLAMIDE (AZOPT) OPS 10 ML BTL OPB SCH ×2 (08:50→20:05)
[2019-07-31] MEDS: SOTALOL HCL 80 MG TAB PO SCH ×2 (08:50→20:04)
[2019-07-31] MEDS: PANTOprazole 40 MG in SYRINGE 0 ML IV SCH ×2 (08:50→20:03)
[2019-07-31] MEDS: METOPROLOL SUCC 25MG EXT REL TAB PO SCH ×2 (08:51→20:04)
[2019-07-31] MEDS: CYANOCOBALAMIN 500 MCG TABLET (VITAMIN B-12) PO SCH (08:51)
[2019-07-31] MEDS: CALCIUM 600MG + VIT D 400 IU TAB PO SCH ×2 (08:51→20:04)
[2019-07-31] MEDS: LOSARTAN POTASSIUM 50 MG TAB PO SCH (08:51)
[2019-07-31] MEDS: SODIUM CHLORIDE 0.9% 1000ML 1,000 ML IV SCH (12:46)
--- NOTE | 2019-07-31 14:11 | Hospitalist Progress Note ---
Date of Service July 31, 2019 Assessment & Plan (1) Left lower lobe pneumonia: Admitted with exertional shortness of breath for some time Minimal cough but no fever and/or chills Chest x-ray shows possible left middle lobe infiltration Has been started with IV ceftriaxone and doxycycline (2) Anemia: Complaint to have shortness of breath on exertion Likely secondary and/or contributory due to anemia No history of GI bleed and his stool has been negative Hemoglobin remains at 8.0 today Iron studies, vitamin B12 and folate levels are within normal limit MCV is borderline high with about 1% blood cells in peripheral blood film Will check peripheral blood smear and discuss with form maker Differential diagnosis include hematologic malignancies Will transfuse after discussion with the form maker (3) Paroxysmal atrial fibrillation: Rate remains controlled We will continue current medications and Coumadin (4) HTN (hypertension): Blood pressure remains stable DVT prophylaxis On Coumadin with therapeutic INR CODE STATUS Full Admission and Anticipated Discharge Date Admission Date: July 30, 2019 Subjective The patient was seen and examined in medical telemetry unit She was admitted with on going symptoms of shortness of breath on exertion for some time and noted to have a hemoglobin of 7.6 as an outpatient Denies any chest pain and/or palpitation Complains to have some weight Review of Systems Review of Systems: All systems reviewed and are unremarkable except as noted below Constitutional: + weakness Respiratory: + dyspnea on exertion Physical Exam Physical Exam: Lying in bed comfortably Constitutional: no acute distress and not ill appearing Eyes: PERRL, conjunctivae normal, anicteric sclerae ENMT: external ear and nose normal, oropharynx normal Neck: trachea midline, no thyromegaly Respiratory: normal respiratory effort; no respiratory distress Auscultation: lungs clear to auscultation bilaterally Cardiovascular: Rate/Rhythm: regular rate and regular rhythm Heart Sounds: no murmur Gastrointestinal (Abdomen): Inspection/Auscultation: abdomen normal to inspection and normal bowel sounds; abdomen not distended Percussion/Palpation: abdomen soft; abdomen nontender Musculoskeletal: No acute arthritis in any joints Neurologic: moves all extremities; no focal motor deficits Alert, awake and oriented x3 Lymphatic: no cervical or axillary lymphadenopathy Results & Data Results & Data ([facility]) Vital Signs (Past 12 Hours) Vital Signs Temp Pulse Pulse Resp BP Pulse Ox 07/31/19 11:53 36.8 C 65 18 126/78 96 07/31/19 07:58 36.7 C 68 18 148/80 H 95 07/31/19 07:22 61 07/31/19 03:04 36.7 C 69 20 130/76 91 Laboratory Results Short CBC 07/30/19 07/31/19 07/31/19 Range/Units 18:41 07:30 07:30 WBC 8.88 5.02 (4.8-10.8) K/uL Hgb 8.2 L 8.0 L (12.0-16.0) g/dL Hct 25.3 L 24.6 L (37-47) % Plt Count 347 249 (130-400) K/uL Peripher Smr Path Cons Cancelled BMP 07/30/19 07/31/19 18:41 07:30 Sodium 135 L 138 Potassium 3.8 3.7 Chloride 104 108 H Carbon Dioxide 25 25 BUN 12 9 Creatinine 0.68 0.53 L Glucose 113 H 106 H Calcium 9.8 9.2 Cardiac Enzymes 07/30/19 Range/Units 18:41 Total Creatine Kinase 47 (26-192) U/L Liver Function 07/30/19 Range/Units 18:41 Total Bilirubin 0.6 (0.2-1) mg/dl AST 38 H (15-37) U/L ALT 35 (12-78) U/L Alkaline Phosphatase 260 H (45-117) U/L Albumin 3.9 (3.4-5.0) gm/dl Urine 07/30/19 Range/Units 18:45 Urine Color Yellow Urine Appearance Clear (Clear) Urine pH 7.0 (4.5-7.5) Ur Specific [place] 1.007 (1.000-1.030) Urine Protein Trace H (Negative) Urine Glucose (UA) Negative (Negative) Medications Administered Current Inpatient Medications Acetaminophen (Tylenol) 650 mg PO Q4H PRN PRN Reason: Pain or Fever Stop: 08/29/19 22:34 Last Admin: 07/31/19 00:14 Dose: 650 mg Documented by: Albuterol (Ventolin Hfa) 1 puffs INH QID PRN PRN Reason: Shortness Of Breath Stop: 08/29/19 22:38 Albuterol (Duoneb) 3 ml NEB Q4R PRN PRN Reason: Shortness Of Breath Or Wheezing Stop: 08/29/19 22:34 Amlodipine Besylate (Norvasc) 5 mg PO QAM [facility] Stop: 08/30/19 08:59 Last Admin: 07/31/19 08:50 Dose: 5 mg Documented by: Brimonidine/Timolol (Combigan) 1 drops OPB BID [facility] Stop: 08/30/19 08:59 Last Admin: 07/31/19 08:49 Dose: 1 drops Documented by: Brinzolamide (Azopt) 1 drops OPB BID [facility] Stop: 08/29/19 22:34 Last Admin: 07/31/19 08:50 Dose: 1 drops Documented by: Cetirizine HCl (Zyrtec) 5 mg PO DAILY PRN PRN Reason: allergies Stop: 08/29/19 22:34 Cyanocobalamin (Vitamin B-12) 1,000 mcg PO QAM [facility] Stop: 08/30/19 08:59 Last Admin: 07/31/19 08:51 Dose: 1,000 mcg Documented by: Fluticasone Propionate (Flonase) 1 sprays NA DAILY PRN PRN Reason: allergies Stop: 08/29/19 22:34 Sodium Chloride (Nss 1000ml) 1,000 mls @ 75 mls/hr IV .[id number] [facility] Stop: 08/29/19 22:34 Last Admin: 07/31/19 12:46 Dose: 75 mls/hr Documented by: Pantoprazole Sodium 40 mg/ (Syringe) 10 mls @ 5 mls/min IV BID [facility] Stop: 08/29/19 22:34 Last Admin: 07/31/19 08:50 Dose: 5 mls/min Documented by: Ceftriaxone Sodium 1,000 mg/ (Dextrose) 50 mls @ 100 mls/hr IV Q24H [facility]; Protocol Stop: 08/05/19 20:29 Doxycycline Hyclate 100 mg/ (Dextrose) 110 mls @ 50 mls/hr IV Q12H [facility] Stop: 08/07/19 05:59 Last Infusion: 07/31/19 07:59 Dose: Infused Documented by: Levothyroxine Sodium (Synthroid) 25 mcg PO DAILYBB [facility] Stop: 08/30/19 06:29 Last Admin: 07/31/19 05:38 Dose: 25 mcg Documented by: Lorazepam (Ativan) 0.5 mg PO DAILY PRN PRN Reason: Anxiety Stop: 08/29/19 22:34 Losartan Potassium (Cozaar) 50 mg PO QAM [facility] Stop: 08/30/19 08:59 Last Admin: 07/31/19 08:51 Dose: 50 mg Documented by: Metoprolol Succinate (Toprol Xl) 25 mg PO BID [facility] Stop: 08/29/19 22:34 Last Admin: 07/31/19 08:51 Dose: 25 mg Documented by: Multivitamins/Minerals (Caltrate Plus) 1 tab PO BID [facility] Stop: 08/30/19 08:59 Last Admin: 07/31/19 08:51 Dose: 1 tab Documented by: Nitroglycerin (Nitrostat) 0.4 mg SL UD PRN PRN Reason: Chest Pain Stop: 08/29/19 22:34 [facility]~Non- Formulary Patient's Own Med 1 ea OP HS [facility] Stop: 08/30/19 20:59 Ondansetron HCl (Zofran) 4 mg IV Q6H PRN PRN Reason: Nausea Stop: 08/29/19 22:34 Sotalol HCl (Betapace) 80 mg PO BID [facility] Stop: 08/29/19 22:34 Last Admin: 07/31/19 08:50 Dose: 80 mg Documented by: (1) Anemia Anemia type: unspecified type Qualified Code(s): D64.9 - Anemia, unspecified (2) Left lower lobe pneumonia Pneumonia type: due to unspecified organism Qualified Code(s): J18.9 - Pneumonia, unspecified organism
--- NOTE | 2019-07-31 14:19 | Gastrointestinal Consultation ---
Date of Consultation July 31, 2019 Assessment & Plan (1) Symptomatic anemia: without any overt GI bleeding. possible PUD vs. neoplastic process vs. AVMs vs. non-GI blood loss etiology Recs: --clear liquid diet --IV protonix 40 mg BID --supportive care, trend H/H --if hgb continues to improve then can advance diet as tolerated tomorrow --will need a nonurgent EGD in the near future to further evaluate her decreased appetite and weight loss Thank you for allowing me to participate in the care of this patient. (2) Weight loss: (3) Decreased appetite: History of Present Illness Attending Physician: Tyler Mcginnis MD 74 yo female here with anemia. She has been having dyspnea on exertion and her recent outpatient labs showed significant anemia for which she was told to come to the ER. stool hemoccult was negative. She denies hematochezia, melena, hematemesis, epistaxis, NSAID abuse, previous issues like this. However she notes a 30 lbs weight loss since January unintentionally and says she has no appetite and doesn't eat much. Last colonoscopy 10 years ago and had polyps, last EGD showed gastritis and GERD she says. She is on coumadin and her INR has been therapeutic since admission. Labs reviewed. Allergies Allergy/AdvReac Type Severity Reaction Status Date / Time Iodinated Contrast Media Allergy Intermediate HAD 1 WELT Verified 07/30/19 21:16 on one occasion nickel Allergy Mild contact Verified 07/30/19 21:16 dermatitis propranolol Allergy Mild bronchospasms Verified 07/30/19 21:16 with higher doses Home Medications Home Medications Medication Instructions Recorded Confirmed Type Calcium 600 + D(3) 1 tab PO BID 12/18/17 07/30/19 History cetirizine [Zyrtec] 5 mg PO DAILY PRN 12/18/17 07/30/19 History fluticasone propionate [Flonase 1 spray INTRANASAL BID PRN 12/18/17 07/30/19 History Allergy Relief] levothyroxine 25 mcg PO QAM 12/18/17 07/30/19 History lysine 1,000 mg PO QAM 12/18/17 07/30/19 History omeprazole magnesium [Prilosec OTC] 20 mg PO QAM 12/18/17 07/30/19 History valacyclovir 2,000 mg PO Q12H PRN 12/18/17 07/30/19 History warfarin 2.5 mg PO SUMOTUWETHFR 12/18/17 07/30/19 History sotalol 80 mg PO BID #60 tab 01/29/18 07/30/19 Rx amlodipine 5 mg PO QAM 04/06/19 07/30/19 History metoprolol succinate 25 mg PO BID 04/06/19 07/30/19 History albuterol sulfate [ProAir HFA] 1 inh INHALATION QID PRN 07/20/19 07/30/19 History brimonidine-timolol [Combigan] 1 drp OPB BID 07/20/19 07/30/19 History brinzolamide [Azopt] 1 drp OPB BID 07/20/19 07/30/19 History cyanocobalamin (vitamin B-12) 1,000 mcg SUBLINGUAL QAM 07/20/19 07/30/19 History lorazepam 0.5 mg PO DAILY PRN 07/20/19 07/30/19 History losartan 50 mg PO QAM 07/20/19 07/30/19 History netarsudil-latanoprost [Rocklatan] 1 drp OPB HS 07/20/19 07/30/19 History Patient History Medical History Anxiety Atrial fibrillation with rapid ventricular response Sinus rhythm on most recent EKGs Degenerative disc disease GERD (gastroesophageal reflux disease) Glaucoma History of cardioversion Multiple unsuccessful. HTN (hypertension) Hx of bronchitis 11/2017 Hx of migraines Hx of skin cancer, basal cell NOSE Hypothyroidism Legally blind Leukocytosis (leucocytosis) Osteoporosis Pulmonary HTN PASP 55-60 mmHg on echo 07/22/19 Seasonal allergies USES INHALER PRN D/T ALLERGIES Stress bladder incontinence, female HX BOTOX INJECTION TREATMENT Valvular disease MILD TR/MR Surgical History H/O eye surgery RT EYE (TUBE SHUNT WITH FILTER WITH GLAUCOMA) History of bilateral tubal ligation History of cataract surgery RT/LEFT History of colonoscopy History of cystoscopy S/P BOTOX INJECTION History of dilatation and curettage History of esophagogastroduodenoscopy (EGD) History of total left hip arthroplasty [place] teeth removed Family History Mother Atrial fibrillation Stroke Family history of diabetes mellitus Father Hypertension Mother No problems noted. Social History Preferred Language: Albanian Communication Ability: Effective Hand Suture Winder Required: No Beliefs That Will Affect Care: None marital status: Current Living Situation: Spouse Other Information That Helps Us Care for You: No Feels Safe at Home: Yes Safety Concerns: Feels Safe At This Time Smoking Status: Never smoker Second Hand Exposure: Yes ( A CHILD FOR SHORT TIME) ; Hx Alcohol Use: Yes Alcohol type: wine Hx Substance Use: No Review of Systems Constitutional: no fever, no chills and no weight loss Eyes: as per Subjective / HPI Ear, Nose, Mouth, Throat: as per Subjective / HPI Respiratory: no dyspnea and no dyspnea on exertion Cardiovascular: no chest pain and no palpitations Gastrointestinal: as per Subjective / HPI Musculoskeletal: no joint pain and no swelling Integumentary: no rash and no lesions Neurologic: no numbness and no paresthesia Psychiatric: no depression and no anxiety Endocrine: no fatigue Hematologic / Lymphatic: no easy bleeding and no easy bruising Physical Exam Constitutional: WD/WN, vitals as above Eyes: EOM intact bilaterally Neck: normal visual inspection Respiratory: normal respiratory effort, lungs clear to auscultation Cardiovascular: RRR, no murmur, no edema Gastrointestinal (Abdomen): Inspection/Auscultation: abdomen normal to inspection; abdomen not distended Percussion/Palpation: abdomen soft; abdomen nontender and no hepatosplenomegaly Musculoskeletal: Extremities: no cyanosis Gait: normal gait Skin: no rashes, warm and dry Neurologic: moves all extremities Psychiatric: A+Ox3, euthymic affect Results & Data ([facility]) Vital Signs (Past 12 Hours) Vital Signs Temp Pulse Pulse Resp BP Pulse Ox 07/31/19 11:53 36.8 C 65 18 126/78 96 07/31/19 07:58 36.7 C 68 18 148/80 H 95 07/31/19 07:22 61 07/31/19 03:04 36.7 C 69 20 130/76 91 PG Care Time/CCT Total # of Minutes Spent Total Time Spent with Patient: Total time spent is greater than 50% in coordination of care (as documented) at patient's floor/unit and/or counseling patient: Coding Level of Care Code 80077 Initial Inpt Care Lvl 3 Diagnoses Symptomatic anemia D64.9 Weight loss R63.4 Decreased appetite R63.0
[2019-07-31] MEDS: cefTRIAXone SODIUM 1,000 MG in DEXTROSE 5% 50 ML IV SCH (19:57)
[2019-07-31] MEDS: ROCKLATAN OP SCH (20:05)
[2019-07-31] MEDS: LORazepam 0.5 MG TAB PO PRN (23:52)
[2019-08-01] MEDS: SODIUM CHLORIDE 0.9% 1000ML 1,000 ML IV SCH ×2 (02:35→15:42)
[2019-08-01] MEDS: LEVOTHYROXINE SODIUM 25 MCG TABLET PO SCH (05:47)
[2019-08-01] MEDS: DOXYCYCLINE HYCLATE 100 MG in DEXTROSE 5% 100 ML IV SCH ×2 (05:47→17:28)
--- NOTE | 2019-08-01 07:20 | Electrocardiogram Report ---
Test Reason : Blood Pressure : / mmHG Vent. Rate : 078 BPM Atrial Rate : 078 BPM P-R Int : 150 ms QRS Dur : 088 ms QT Int : 418 ms P-R-T Axes : 066 018 060 degrees QTc Int : 476 ms Poor data quality, interpretation may be adversely affected Sinus rhythm with premature atrial beats Otherwise normal ECG When compared with ECG of 07-APR-2019 11:54, No significant change Confirmed by Matt Villalobos ([id number]) on 08/01/2019 7:20:22 AM Referred By: Mare Wright Confirmed By:Matt Villalobos
--- NOTE | 2019-08-01 07:31 | Electrocardiogram Report ---
Test Reason : Blood Pressure : / mmHG Vent. Rate : 068 BPM Atrial Rate : 068 BPM P-R Int : 158 ms QRS Dur : 090 ms QT Int : 420 ms P-R-T Axes : 038 037 074 degrees QTc Int : 447 ms Normal sinus rhythm Nonspecific T wave abnormality Abnormal ECG When compared with ECG of 30-JUL-2019 18:16, (unconfirmed) No significant change was found Confirmed by Matt Villalobos ([id number]) on 08/01/2019 7:31:03 AM Referred By: Mare Wright Confirmed By:Matt Villalobos
[2019-08-01] MEDS: BRINZOLAMIDE (AZOPT) OPS 10 ML BTL OPB SCH ×2 (07:49→20:25)
[2019-08-01] MEDS: BRIMONIDINE TARTRATE/TIMOLOL OPB SCH ×2 (07:49→20:25)
[2019-08-01] MEDS: METOPROLOL SUCC 25MG EXT REL TAB PO SCH ×2 (07:50→20:26)
[2019-08-01] MEDS: CALCIUM 600MG + VIT D 400 IU TAB PO SCH ×2 (07:50→20:27)
[2019-08-01] MEDS: LOSARTAN POTASSIUM 50 MG TAB PO SCH (07:50)
[2019-08-01] MEDS: AMLODIPINE BESYLATE 5 MG TAB PO SCH (07:50)
[2019-08-01] MEDS: CYANOCOBALAMIN 500 MCG TABLET (VITAMIN B-12) PO SCH (07:50)
[2019-08-01] MEDS: SOTALOL HCL 80 MG TAB PO SCH ×2 (07:50→20:27)
[2019-08-01] MEDS: PANTOprazole 40 MG in SYRINGE 0 ML IV SCH ×2 (09:02→20:26)
[2019-08-01 09:55] LABS: Hematocrit (blood only) 26.4 % (37-47); Hemoglobin 8.6 g/dL (12.0-16.0); Mean Corpuscular Hemoglobin 33.3 pg (25-34); Mean Corpuscular Hgb Conc 32.6 g/dL (32-36); Mean Corpuscular Volume 102.3 fL (80-100); Mean Platelet Volume 9.1 fL (7.4-10.4); Nucleated RBC # (auto) 0.07 K/uL (0-0); Platelet Count 263 K/uL (130-400); RDW Coefficient of Variation 21.1 % (11.5-14.5); RDW Standard Deviation 77.6 fL (36.4-46.3); Red Blood Count 2.58 M/uL (4.2-5.4); White Blood Count 6.32 K/uL (4.8-10.8)
[2019-08-01 10:15] LABS: INR 2.8 (0.9-1.1); Prothrombin Time 27.7 Seconds (9.0-12.0)
[2019-08-01 10:23] LABS: BUN Creatinine Ratio 10.6 (10-20); Calcium 9.6 mg/dl (8.5-10.1); Creatinine Clr Calc Pharmacy 85.1 ml/min; Est GFR (African American) 109.9; Est GFR (Non-African American) 94.9; Magnesium 1.9 mg/dl (1.8-2.4); Potassium 3.7 mmol/L (3.5-5.1)
[2019-08-01 10:37] LABS: ALC (manual) 2.59 K/uL (1.2-3.4); ANC (manual) 2.72 K/uL (1.4-6.5); Anisocytosis Present; Basophils # (manual) 0.06 K/uL (0-0.2); Blast # (manual) 0.06 K/uL (0-0); Eosinophils # (manual) 0.38 K/uL (0-0.5); Lymphocytes # (manual) 2.28 K/uL (1.2-3.4); Monocytes # (manual) 0.38 K/uL (0.11-0.59); Myelocytes # (manual) 0.13 K/uL (0-0); Neutrophils # (manual) 2.72 K/uL (1.4-6.5); Ovalocytes 1+; Reactive Lymphocytes # (manual) 0.32 K/uL
[2019-08-01 10:39] LABS: Macrocytosis Present
[2019-08-01 10:39] LABS: Anisocytosis Present; Macrocytosis Present; Ovalocytes 1+; Polychromasia 1+
[2019-08-01] MEDS ORDERED: SODIUM CHLORIDE 0.9% 250 ML IV PRN (11:00)
--- NOTE | 2019-08-01 11:33 | Hospitalist Progress Note ---
Date of Service August 01, 2019 Assessment & Plan (1) Left lower lobe pneumonia: Admitted with exertional shortness of breath for some time Minimal cough but no fever and/or chills Chest x-ray shows possible left middle lobe infiltration Has been started with IV ceftriaxone and doxycycline Will check chest x-ray tomorrow Denies any cough, any fever and/or chills (2) Anemia: Complaint to have shortness of breath on exertion Likely secondary and/or contributory due to anemia No history of GI bleed and his stool has been negative Hemoglobin remains at 8.0 today Iron studies, vitamin B12 and folate levels are within normal limit MCV is borderline high with about 1% blood cells in peripheral blood film Will check peripheral blood smear and discuss with ecommerce merchandising manager Differential diagnosis include hematologic malignancies Received 1 unit of blood transfusion in the ER 04/01 of this month Still having shortness of breath and with a history of cardiac problem will be given another unit of blood today Likely discharge tomorrow with a follow-up appointment with ecommerce merchandising manager (3) Paroxysmal atrial fibrillation: Rate remains controlled We will continue current medications and Coumadin INR remains therapeutic (4) HTN (hypertension): Blood pressure remains elevated Heart rate remains around 89/min Will increase losartan to 100 mg in the morning to control blood pressure DVT prophylaxis On Coumadin with therapeutic INR CODE STATUS Full Admission and Anticipated Discharge Date Admission Date: July 30, 2019 Subjective The patient was seen and examined in medical telemetry unit She was admitted with on going symptoms of shortness of breath on exertion for some time and noted to have a hemoglobin of 7.6 as an outpatient Denies any chest pain and/or palpitation Complains to have some weight 08/01/2019 The patient was seen and examined in medical telemetry unit She complains to have shortness of breath without any chest pain She received 1 unit of blood on of this month and the hemoglobin is 8.6 Denies any nausea and or vomiting, any fever and/or chills Review of Systems Review of Systems: All systems reviewed and are unremarkable except as noted below Constitutional: + weakness Respiratory: + dyspnea (At rest and with exertion) and + dyspnea on exertion Cardiovascular: no chest pain and no palpitations Physical Exam Physical Exam: Lying in bed with minimal shortness of breath at rest Constitutional: no acute distress and not ill appearing Eyes: PERRL, conjunctivae normal, anicteric sclerae ENMT: external ear and nose normal, oropharynx normal Neck: trachea midline, no thyromegaly Respiratory: + respiratory distress (Minimal distress at rest) Auscultation: + diminished lung sounds and + crackles (Left lower lung) Cardiovascular: Rate/Rhythm: regular rate and regular rhythm Heart Sounds: no murmur Gastrointestinal (Abdomen): Inspection/Auscultation: abdomen normal to inspection and normal bowel sounds; abdomen not distended Percussion/Palpation: abdomen soft; abdomen nontender Musculoskeletal: No acute arthritis involving any joints Neurologic: moves all extremities; no focal motor deficits Alert, awake and oriented x3 Lymphatic: no cervical or axillary lymphadenopathy Results & Data Results & Data ([facility]) Vital Signs (Past 12 Hours) Vital Signs Temp Pulse Pulse Resp BP Pulse Ox 08/01/19 07:55 37.2 C 89 20 186/74 H 95 08/01/19 07:19 84 08/01/19 02:59 36.8 C 81 16 162/76 H 91 Laboratory Results Short CBC 08/01/19 Range/Units 09:47 WBC 6.32 (4.8-10.8) K/uL Hgb 8.6 L (12.0-16.0) g/dL Hct 26.4 L (37-47) % Plt Count 263 (130-400) K/uL BMP 08/01/19 09:47 Sodium 136 Potassium 3.7 Chloride 104 Carbon Dioxide 25 BUN 6 L Creatinine 0.53 L Glucose 111 H Calcium 9.6 Medications Administered Current Inpatient Medications Acetaminophen (Tylenol) 650 mg PO Q4H PRN PRN Reason: Pain or Fever Stop: 08/29/19 22:34 Last Admin: 07/31/19 21:57 Dose: 650 mg Documented by: Albuterol (Ventolin Hfa) 1 puffs INH QID PRN PRN Reason: Shortness Of Breath Stop: 08/29/19 22:38 Albuterol (Duoneb) 3 ml NEB Q4R PRN PRN Reason: Shortness Of Breath Or Wheezing Stop: 08/29/19 22:34 Amlodipine Besylate (Norvasc) 5 mg PO QAM [facility] Stop: 08/30/19 08:59 Last Admin: 08/01/19 07:50 Dose: 5 mg Documented by: Brimonidine/Timolol (Combigan) 1 drops OPB BID [facility] Stop: 08/30/19 08:59 Last Admin: 08/01/19 07:49 Dose: 1 drops Documented by: Brinzolamide (Azopt) 1 drops OPB BID [facility] Stop: 08/29/19 22:34 Last Admin: 08/01/19 07:49 Dose: 1 drops Documented by: Cetirizine HCl (Zyrtec) 5 mg PO DAILY PRN PRN Reason: allergies Stop: 08/29/19 22:34 Cyanocobalamin (Vitamin B-12) 1,000 mcg PO QAM [facility] Stop: 08/30/19 08:59 Last Admin: 08/01/19 07:50 Dose: 1,000 mcg Documented by: Fluticasone Propionate (Flonase) 1 sprays NA DAILY PRN PRN Reason: allergies Stop: 08/29/19 22:34 Sodium Chloride (Nss 1000ml) 1,000 mls @ 75 mls/hr IV .[id number] [facility] Stop: 08/29/19 22:34 Last Admin: 08/01/19 02:35 Dose: 75 mls/hr Documented by: Pantoprazole Sodium 40 mg/ (Syringe) 10 mls @ 5 mls/min IV BID [facility] Stop: 08/29/19 22:34 Last Admin: 08/01/19 09:02 Dose: 5 mls/min Documented by: Ceftriaxone Sodium 1,000 mg/ (Dextrose) 50 mls @ 100 mls/hr IV Q24H [facility]; Protocol Stop: 08/05/19 20:29 Last Infusion: 07/31/19 20:27 Dose: Infused Documented by: Doxycycline Hyclate 100 mg/ (Dextrose) 110 mls @ 50 mls/hr IV Q12H [facility] Stop: 08/07/19 05:59 Last Infusion: 08/01/19 07:48 Dose: Infused Documented by: Sodium Chloride (Nss) 250 mls @ 15 mls/hr IV .[id number] PRN PRN Reason: For Transfusion Stop: 08/01/19 21:00 Levothyroxine Sodium (Synthroid) 25 mcg PO DAILYBB [facility] Stop: 08/30/19 06:29 Last Admin: 08/01/19 05:47 Dose: 25 mcg Documented by: Lorazepam (Ativan) 0.5 mg PO DAILY PRN PRN Reason: Anxiety Stop: 08/29/19 22:34 Last Admin: 07/31/19 23:52 Dose: 0.5 mg Documented by: Losartan Potassium (Cozaar) 50 mg PO QAM [facility] Stop: 08/30/19 08:59 Last Admin: 08/01/19 07:50 Dose: 50 mg Documented by: Metoprolol Succinate (Toprol Xl) 25 mg PO BID [facility] Stop: 08/29/19 22:34 Last Admin: 08/01/19 07:50 Dose: 25 mg Documented by: Multivitamins/Minerals (Caltrate Plus) 1 tab PO BID [facility] Stop: 08/30/19 08:59 Last Admin: 08/01/19 07:50 Dose: 1 tab Documented by: Nitroglycerin (Nitrostat) 0.4 mg SL UD PRN PRN Reason: Chest Pain Stop: 08/29/19 22:34 Rocklatan~Non- Formulary Patient's Own Med 1 ea OP HS [facility] Stop: 08/30/19 20:59 Last Admin: 07/31/19 20:05 Dose: 1 drops Documented by: Ondansetron HCl (Zofran) 4 mg IV Q6H PRN PRN Reason: Nausea Stop: 08/29/19 22:34 Sotalol HCl (Betapace) 80 mg PO BID [facility] Stop: 08/29/19 22:34 Last Admin: 08/01/19 07:50 Dose: 80 mg Documented by: (1) Left lower lobe pneumonia Pneumonia type: due to unspecified organism Qualified Code(s): J18.9 - Pneumonia, unspecified organism (2) Anemia Anemia type: unspecified type Qualified Code(s): D64.9 - Anemia, unspecified
[2019-08-01] MEDS ORDERED: LOSARTAN POTASSIUM 50 MG TAB PO SCH (11:45)
[2019-08-01] MEDS: ROCKLATAN OP SCH (20:26)
[2019-08-01] MEDS: cefTRIAXone SODIUM 1,000 MG in DEXTROSE 5% 50 ML IV SCH (20:28)
[2019-08-01] MEDS: LORazepam 0.5 MG TAB PO PRN (20:35)
[2019-08-01] MEDS: ACETAMINOPHEN 325 MG TAB PO PRN (20:35)
[2019-08-02] MEDS: SODIUM CHLORIDE 0.9% 1000ML 1,000 ML IV SCH ×2 (05:42→19:34)
[2019-08-02] MEDS: LEVOTHYROXINE SODIUM 25 MCG TABLET PO SCH (05:42)
[2019-08-02] MEDS: DOXYCYCLINE HYCLATE 100 MG in DEXTROSE 5% 100 ML IV SCH ×2 (05:42→18:47)
[2019-08-02 06:18] LABS: Basophils # (auto) 0.11 K/uL (0-0.2); Basophils % (auto) 1.9 %; Eosinophils # (auto) 0.18 K/uL (0-0.5); Eosinophils % (auto) 3.2 %; Hematocrit (blood only) 27.5 % (37-47); Hemoglobin 9.1 g/dL (12.0-16.0); Immature Granulocytes # (auto) 0.27 K/uL (0.00-0.02); Immature Granulocytes % (auto) 4.7 %; Lymphocytes # (auto) 1.84 K/uL (1.2-3.4); Lymphocytes % (auto) 32.3 %; Mean Corpuscular Hemoglobin 32.7 pg (25-34); Mean Corpuscular Hgb Conc 33.1 g/dL (32-36); Mean Corpuscular Volume 98.9 fL (80-100); Mean Platelet Volume 9.5 fL (7.4-10.4); Monocytes # (auto) 0.72 K/uL (0.11-0.59); Monocytes % (auto) 12.7 %; Neutrophils # (auto) 2.57 K/uL (1.4-6.5); Neutrophils % (auto) 45.2 %; Nucleated RBC # (auto) 0.08 K/uL (0-0); Nucleated RBC % (auto) 1.4 %; Platelet Count 253 K/uL (130-400); RDW Coefficient of Variation 21.4 % (11.5-14.5); RDW Standard Deviation 77.4 fL (36.4-46.3); Red Blood Count 2.78 M/uL (4.2-5.4); White Blood Count 5.69 K/uL (4.8-10.8)
[2019-08-02 06:26] LABS: INR 2.5 (0.9-1.1); Prothrombin Time 24.8 Seconds (9.0-12.0)
[2019-08-02 06:45] LABS: BUN Creatinine Ratio 12.5 (10-20); Calcium 9.5 mg/dl (8.5-10.1); Creatinine Clr Calc Pharmacy 104.8 ml/min; Est GFR (African American) 117.8; Est GFR (Non-African American) 101.6; Magnesium 1.8 mg/dl (1.8-2.4); Potassium 3.2 mmol/L (3.5-5.1)
[2019-08-02 07:02] LABS: Anisocytosis Present; Ovalocytes 1+
[2019-08-02] MEDS: BRINZOLAMIDE (AZOPT) OPS 10 ML BTL OPB SCH ×2 (07:52→22:11)
[2019-08-02] MEDS: ACETAMINOPHEN 325 MG TAB PO PRN ×2 (07:52→19:37)
[2019-08-02] MEDS: SOTALOL HCL 80 MG TAB PO SCH ×2 (07:53→22:12)
[2019-08-02] MEDS: CALCIUM 600MG + VIT D 400 IU TAB PO SCH ×2 (07:53→22:13)
[2019-08-02] MEDS: BRIMONIDINE TARTRATE/TIMOLOL OPB SCH ×2 (07:54→22:11)
[2019-08-02] MEDS: LOSARTAN POTASSIUM 50 MG TAB PO SCH (07:55)
[2019-08-02] MEDS: AMLODIPINE BESYLATE 5 MG TAB PO SCH (07:56)
[2019-08-02] MEDS: METOPROLOL SUCC 25MG EXT REL TAB PO SCH ×2 (07:56→22:13)
[2019-08-02] MEDS: CYANOCOBALAMIN 500 MCG TABLET (VITAMIN B-12) PO SCH (07:57)
[2019-08-02] MEDS: PANTOprazole 40 MG in SYRINGE 0 ML IV SCH ×2 (08:16→22:08)
[2019-08-02] MEDS ORDERED: POTASSIUM CHLORIDE 20 MEQ TABCR PO STA (08:54)
--- NOTE | 2019-08-02 10:07 | XRay Report ---
XR chest 2V PA/lateral CLINICAL HISTORY: pneumonia dyspnea COMPARISON STUDY: 07/30/2019 FINDINGS: Parenchymal infiltrate left midlung slightly improved. Mild progression of parenchymal and/ or interstitial markings in the lower lung regions bilaterally. Pulmonary apices are clear. Tortuosit y of the thoracic aorta unchanged. IMPRESSION: 1. Somewhat mixed findings. 2. Slight improvement in the left midlung parenchymal infiltrate. 3. Developing interstitial bibasilar parenchymal infiltrative change. ACT 112: Negative or not required by law. The above report was generated using voice recognition software. It may contain grammatical, syntax or spelling errors. Electronically signed by: Mu Mcneil M.D. 08/02/2019 10:05 AM
--- NOTE | 2019-08-02 11:08 | Gastroenterology Progress Note ---
Date of Service August 02, 2019 Assessment & Plan (1) Symptomatic anemia: 74 y/o female admitted with symptomatic anemia (macrocytic). HGB continues to improve, is now 9.1; BUN WNL; she's had no obvious GIB including no hematemesis, no melena, hematochezia. Unclear source of anemia; pt is to have f/u with arts administrator. - Agree with heme/onc eval - Will set pt up with outpt EGD/colonoscopy to evaluate for GI source of anemia - Pt should have outpt GI f/u for intermittently elevated LFTs as well Admission and Anticipated Discharge Date Admission Date: July 30, 2019. Supervising Physician Co-Signing Physician Notes I performed a history and physical examination of the patient today, including specifically on physical exam - soft abdomen. I have discussed the patient's management with the advanced practitioner. Please refer to the nurse practitioner's note for the documented findings and plan of care. EGD/colonoscopy as OP. No overt bleeding now. Subjective Pt seen and examined. No acute events overnight. Tolerating (but not enjoying) clear liquid diet. Denies abd pain, nausea, vomiting, hematemesis, hematochezia. Chest x-ray shows possible left middle lobe infiltration and she's on ABX for that. States she's felt HIGGINS for the last month or so but blamed it on using a walker for her hip that was to be replaced. Did have a 30 lb weight loss since last year, blames it on decreased oral intake due to having a "bad back;" not wanting to sit at the dinner table to eat. HGB improved to 9.1 today, BUN WNL. Noted that LFTs have been intermittently elevated since 2018. She tells me she has some intermittent solid food dysphagia since the last month. Takes a daily PPI; gets occasional heartburn with dietary indiscretion. Pt remains on Coumadin for h/o a-fib. EGD 04/24/[address] Martin for heartburn: Normal Colonoscopy 05/29/10: Hyperplastic polyp, repeat 2020 Review of Systems Constitutional: as per Subjective / HPI and + weight loss; no fever and no chills Respiratory: as per Subjective / HPI Cardiovascular: no chest pain and no edema Additional Comments: h/o a-fib Gastrointestinal: as per Subjective / HPI Genitourinary: no dysuria and no hematuria Integumentary: no rash Hematologic / Lymphatic: no easy bleeding and no coagulopathy Physical Exam Constitutional: well developed + somewhat pale Respiratory: normal respiratory effort Cardiovascular: Rate/Rhythm: regular rate and regular rhythm Extremities: no edema Gastrointestinal (Abdomen): Inspection/Auscultation: abdomen normal to inspection; abdomen not distended Percussion/Palpation: abdomen soft; abdomen nontender Skin: no rashes, warm and dry Psychiatric: A+Ox3, euthymic affect Results & Data ([facility]) Vital Signs (Past 12 Hours) Vital Signs Temp Pulse Pulse Pulse Resp BP BP 08/02/19 08:00 36.6 C 88 22 161/73 H 08/02/19 07:39 90 08/02/19 03:55 36.6 C 74 20 120/78 08/01/19 23:29 36.9 C 80 16 161/79 H Pulse Ox 08/02/19 08:00 98 08/02/19 07:39 08/02/19 03:55 96 08/01/19 23:29 94 Laboratory Results 08/02/19 08/02/19 08/02/19 Range/Units 05:34 05:34 05:34 WBC 5.69 (4.8-10.8) K/uL RBC 2.78 L (4.2-5.4) M/uL Hgb 9.1 L (12.0-16.0) g/dL Hct 27.5 L (37-47) % MCV 98.9 (80-100) fL MCH 32.7 (25-34) pg MCHC 33.1 (32-36) g/dL RDW Std Deviation 77.4 H (36.4-46.3) fL RDW Coeff of Eunice 21.4 H (11.5-14.5) % Plt Count 253 (130-400) K/uL MPV 9.5 (7.4-10.4) fL Immature Gran % (Auto) 4.7 % Neut % (Auto) 45.2 % Lymph % (Auto) 32.3 % Barry % (Auto) 12.7 % Eos % (Auto) 3.2 % Baso % (Auto) 1.9 % Immature Gran # (Auto) 0.27 H (0.00-0.02) K/uL Neut # (Auto) 2.57 (1.4-6.5) K/uL Lymph # (Auto) 1.84 (1.2-3.4) K/uL Barry # (Auto) 0.72 H (0.11-0.59) K/uL Eos # (Auto) 0.18 (0-0.5) K/uL Baso # (Auto) 0.11 (0-0.2) K/uL Absolute Nucleated RBC 0.08 H (0-0) K/uL Nucleated RBC % (auto) 1.4 % Anisocytosis Present Ovalocytes 1+ Peripher Smr Path Cons PT 24.8 H (9.0-12.0) Seconds INR 2.5 H (0.9-1.1) Sodium 138 (136-145) mmol/L Potassium 3.2 L (3.5-5.1) mmol/L Chloride 105 (98-107) mmol/L Carbon Dioxide 26 (21-32) mmol/L Anion Gap 7.0 (3-11) BUN 5 L (7-18) mg/dl Creatinine 0.43 L (0.6-1.2) mg/dl Est Cr Clr Drug Dosing 104.8 ml/min Est GFR ( Amer) 117.8 Est GFR (Non-Af Amer) 101.6 BUN/Creatinine Ratio 12.5 (10-20) Glucose 95 (70-99) mg/dl Calcium 9.5 (8.5-10.1) mg/dl Magnesium 1.8 (1.8-2.4) mg/dl Blood Type Antibody Screen Crossmatch 07/31/19 07/30/19 Range/Units 07:30 18:41 WBC (4.8-10.8) K/uL RBC (4.2-5.4) M/uL Hgb (12.0-16.0) g/dL Hct (37-47) % MCV (80-100) fL MCH (25-34) pg MCHC (32-36) g/dL RDW Std Deviation (36.4-46.3) fL RDW Coeff of Eunice (11.5-14.5) % Plt Count (130-400) K/uL MPV (7.4-10.4) fL Immature Gran % (Auto) % Neut % (Auto) % Lymph % (Auto) % Barry % (Auto) % Eos % (Auto) % Baso % (Auto) % Immature Gran # (Auto) (0.00-0.02) K/uL Neut # (Auto) (1.4-6.5) K/uL Lymph # (Auto) (1.2-3.4) K/uL Barry # (Auto) (0.11-0.59) K/uL Eos # (Auto) (0-0.5) K/uL Baso # (Auto) (0-0.2) K/uL Absolute Nucleated RBC (0-0) K/uL Nucleated RBC % (auto) % Anisocytosis Ovalocytes Peripher Smr Path Cons PT (9.0-12.0) Seconds INR (0.9-1.1) Sodium (136-145) mmol/L Potassium (3.5-5.1) mmol/L Chloride (98-107) mmol/L Carbon Dioxide (21-32) mmol/L Anion Gap (3-11) BUN (7-18) mg/dl Creatinine (0.6-1.2) mg/dl Est Cr Clr Drug Dosing ml/min Est GFR ( Amer) Est GFR (Non-Af Amer) BUN/Creatinine Ratio (10-20) Glucose (70-99) mg/dl Calcium (8.5-10.1) mg/dl Magnesium (1.8-2.4) mg/dl Blood Type A Positive Antibody Screen NEGATIVE Crossmatch See Detail
[2019-08-02] MEDS ORDERED: FUROSEMIDE 40 MG in SYRINGE 0 ML IV ONE (12:00)
--- NOTE | 2019-08-02 13:22 | Hospitalist Progress Note ---
Date of Service August 02, 2019 Assessment & Plan (1) Left lower lobe pneumonia: Admitted with exertional shortness of breath for some time Minimal cough but no fever and/or chills Chest x-ray shows possible left middle lobe infiltration Has been started with IV ceftriaxone and doxycycline Denies any cough, any fever and/or chills Repeat chest x-ray -left middle lung infiltration is better but seems to be developing bibasilar infiltrative change Will give 40 mg intravenous Lasix (2) Anemia: Complaint to have shortness of breath on exertion Likely secondary and/or contributory due to anemia No history of GI bleed and his stool has been negative Hemoglobin remains at 8.0 today Iron studies, vitamin B12 and folate levels are within normal limit MCV is borderline high with about 1% blood cells in peripheral blood film Will check peripheral blood smear and discuss with b operator Differential diagnosis include hematologic malignancies Received 1 unit of blood transfusion in the ER 04/01 of this month Still having shortness of breath and with a history of cardiac problem will be given another unit of blood today Likely discharge tomorrow with a follow-up appointment with b operator Received another unit of blood transfusion yesterday and the hemoglobin went up to 9.1 Generally a little better We will give Lasix 40 mg IV x1 Advised to ambulate more and will get a two-year step O2 saturation test before sending her home (3) Paroxysmal atrial fibrillation: Rate remains controlled We will continue current medications and Coumadin INR remains therapeutic (4) HTN (hypertension): Blood pressure remains elevated Heart rate remains around 89/min Will increase losartan to 100 mg in the morning to control blood pressure He used to take losartan 100 mg in the past Blood pressure seems to be improving DVT prophylaxis On Coumadin with therapeutic INR CODE STATUS Full Likely discharge tomorrow Admission and Anticipated Discharge Date Admission Date: July 30, 2019 Subjective The patient was seen and examined in medical telemetry unit She was admitted with on going symptoms of shortness of breath on exertion for some time and noted to have a hemoglobin of 7.6 as an outpatient Denies any chest pain and/or palpitation Complains to have some weight 08/01/2019 The patient was seen and examined in medical telemetry unit She complains to have shortness of breath without any chest pain She received 1 unit of blood on of this month and the hemoglobin is 8.6 Denies any nausea and or vomiting, any fever and/or chills 08/02/2019 The patient was seen and examined in medical telemetry unit She still feels short of breath at rest and worse with exertion Denies any chest pain and palpitation Her blood pressure was noted to be high but improving as of this morning Review of Systems Review of Systems: All systems reviewed and are unremarkable except as noted below Constitutional: + weakness Respiratory: + dyspnea (At rest and with exertion) and + dyspnea on exertion Physical Exam Physical Exam: Lying in bed with minimal shortness of breath at rest Constitutional: no acute distress and not ill appearing Eyes: PERRL, conjunctivae normal, anicteric sclerae ENMT: external ear and nose normal, oropharynx normal Neck: trachea midline, no thyromegaly Respiratory: + respiratory distress (Minimal distress at rest) Auscultation: + diminished lung sounds, + crackles (Left lower lung) and + wheezes (Minimal wheezing) Cardiovascular: Rate/Rhythm: regular rate and regular rhythm Heart Sounds: no murmur Gastrointestinal (Abdomen): Inspection/Auscultation: abdomen normal to inspection and normal bowel sounds; abdomen not distended Percussion/Palpation: abdomen soft; abdomen nontender Musculoskeletal: No acute arthritis involving any joints Neurologic: moves all extremities; no focal motor deficits Lymphatic: no cervical or axillary lymphadenopathy Results & Data Results & Data ([facility]) Vital Signs (Past 12 Hours) Vital Signs Temp Pulse Pulse Pulse Pulse Pulse Pulse 08/02/19 11:37 37 C 08/02/19 11:08 71 68 77 68 08/02/19 08:00 36.6 C 08/02/19 07:39 90 08/02/19 03:55 36.6 C 74 Pulse Resp Resp Resp Resp Resp BP 08/02/19 11:37 75 20 150/71 H 08/02/19 11:08 19 18 18 16 08/02/19 08:00 88 22 08/02/19 07:39 08/02/19 03:55 20 120/78 BP Pulse Ox Pulse Ox Pulse Ox Pulse Ox Pulse Ox 08/02/19 11:37 95 08/02/19 11:08 94 87 L 90 90 08/02/19 08:00 161/73 H 98 08/02/19 07:39 08/02/19 03:55 96 Laboratory Results Short CBC 08/02/19 Range/Units 05:34 WBC 5.69 (4.8-10.8) K/uL Hgb 9.1 L (12.0-16.0) g/dL Hct 27.5 L (37-47) % Plt Count 253 (130-400) K/uL [facility] 08/02/19 05:34 Sodium 138 Potassium 3.2 L Chloride 105 Carbon Dioxide 26 BUN 5 L Creatinine 0.43 L Glucose 95 Calcium 9.5 Medications Administered Current Inpatient Medications Acetaminophen (Tylenol) 650 mg PO Q4H PRN PRN Reason: Pain or Fever Stop: 08/29/19 22:34 Last Admin: 08/02/19 07:52 Dose: 650 mg Documented by: Albuterol (Ventolin Hfa) 1 puffs INH QID PRN PRN Reason: Shortness Of Breath Stop: 08/29/19 22:38 Albuterol (Duoneb) 3 ml NEB Q4R PRN PRN Reason: Shortness Of Breath Or Wheezing Stop: 08/29/19 22:34 Last Admin: 08/01/19 14:52 Dose: 3 ml Documented by: Amlodipine Besylate (Norvasc) 5 mg PO [facility] Stop: 08/30/19 08:59 Last Admin: 08/02/19 07:56 Dose: 5 mg Documented by: Brimonidine/Timolol (Combigan) 1 drops OPB BID [facility] Stop: 08/30/19 08:59 Last Admin: 08/02/19 07:54 Dose: 1 drops Documented by: Brinzolamide (Azopt) 1 drops OPB BID [facility] Stop: 08/29/19 22:34 Last Admin: 08/02/19 07:52 Dose: 1 drops Documented by: Cetirizine HCl (Zyrtec) 5 mg PO DAILY PRN PRN Reason: allergies Stop: 08/29/19 22:34 Last Admin: 08/01/19 14:40 Dose: 5 mg Documented by: Cyanocobalamin (Vitamin B-12) 1,000 mcg PO QAM [facility] Stop: 08/30/19 08:59 Last Admin: 08/02/19 07:57 Dose: 1,000 mcg Documented by: Fluticasone Propionate (Flonase) 1 sprays NA DAILY PRN PRN Reason: allergies Stop: 08/29/19 22:34 Sodium Chloride (Nss 1000ml) 1,000 mls @ 75 mls/hr IV .[id number] [facility] Stop: 08/29/19 22:34 Last Admin: 08/02/19 05:42 Dose: 75 mls/hr Documented by: Pantoprazole Sodium 40 mg/ (Syringe) 10 mls @ 5 mls/min IV BID [facility] Stop: 08/29/19 22:34 Last Admin: 08/02/19 08:16 Dose: 5 mls/min Documented by: Ceftriaxone Sodium 1,000 mg/ (Dextrose) 50 mls @ 100 mls/hr IV Q24H [facility]; Protocol Stop: 08/05/19 20:29 Last Infusion: 08/01/19 21:41 Dose: Infused Documented by: Doxycycline Hyclate 100 mg/ (Dextrose) 110 mls @ 50 mls/hr IV Q12H [facility] Stop: 08/07/19 05:59 Last Infusion: 08/02/19 08:00 Dose: Infused Documented by: Levothyroxine Sodium (Synthroid) 25 mcg PO DAILYBB [facility] Stop: 08/30/19 06:29 Last Admin: 08/02/19 05:42 Dose: 25 mcg Documented by: Lorazepam (Ativan) 0.5 mg PO DAILY PRN PRN Reason: Anxiety Stop: 08/29/19 22:34 Last Admin: 08/01/19 20:35 Dose: 0.5 mg Documented by: Losartan Potassium (Cozaar) 100 mg PO QAM [facility] Stop: 09/01/19 08:59 Last Admin: 08/02/19 07:55 Dose: 100 mg Documented by: Metoprolol Succinate (Toprol Xl) 25 mg PO BID [facility] Stop: 08/29/19 22:34 Last Admin: 08/02/19 07:56 Dose: 25 mg Documented by: Multivitamins/Minerals (Caltrate Plus) 1 tab PO BID [facility] Stop: 08/30/19 08:59 Last Admin: 08/02/19 07:53 Dose: 1 tab Documented by: Nitroglycerin (Nitrostat) 0.4 mg SL UD PRN PRN Reason: Chest Pain Stop: 08/29/19 22:34 Rocklatan~Non- Formulary Patient's Own Med 1 ea OP HS [facility] Stop: 08/30/19 20:59 Last Admin: 08/01/19 20:26 Dose: 2 drops Documented by: Ondansetron HCl (Zofran) 4 mg IV Q6H PRN PRN Reason: Nausea Stop: 08/29/19 22:34 Sotalol HCl (Betapace) 80 mg PO BID [facility] Stop: 08/29/19 22:34 Last Admin: 08/02/19 07:53 Dose: 80 mg Documented by: (1) Anemia Anemia type: unspecified type Qualified Code(s): D64.9 - Anemia, unspecified (2) Left lower lobe pneumonia Pneumonia type: due to unspecified organism Qualified Code(s): J18.9 - Pneumonia, unspecified organism
[2019-08-02] MEDS: LORazepam 0.5 MG TAB PO PRN (19:37)
[2019-08-02] MEDS: cefTRIAXone SODIUM 1,000 MG in DEXTROSE 5% 50 ML IV SCH (22:08)
[2019-08-02] MEDS: ROCKLATAN OP SCH (22:11)
[2019-08-03] MEDS: ACETAMINOPHEN 325 MG TAB PO PRN ×2 (02:15→20:42)
[2019-08-03] MEDS ORDERED: Nursing to Pharmacy Communication ONE (04:36)
[2019-08-03] MEDS: DOXYCYCLINE HYCLATE 100 MG in DEXTROSE 5% 100 ML IV SCH (05:59)
[2019-08-03] MEDS: LEVOTHYROXINE SODIUM 25 MCG TABLET PO SCH (06:05)
[2019-08-03] MEDS: LORazepam 0.5 MG TAB PO PRN (06:14)
[2019-08-03 07:33] LABS: Prothrombin Time 20.8 Seconds (9.0-12.0)
[2019-08-03] MEDS: CYANOCOBALAMIN 500 MCG TABLET (VITAMIN B-12) PO SCH (08:05)
[2019-08-03] MEDS: SOTALOL HCL 80 MG TAB PO SCH ×2 (08:05→20:37)
[2019-08-03] MEDS: LOSARTAN POTASSIUM 50 MG TAB PO SCH (08:05)
[2019-08-03] MEDS: PANTOprazole 40 MG in SYRINGE 0 ML IV SCH (08:05)
[2019-08-03] MEDS: AMLODIPINE BESYLATE 5 MG TAB PO SCH (08:05)
[2019-08-03] MEDS: CALCIUM 600MG + VIT D 400 IU TAB PO SCH ×2 (08:05→20:37)
[2019-08-03] MEDS: METOPROLOL SUCC 25MG EXT REL TAB PO SCH ×2 (08:05→20:37)
[2019-08-03] MEDS: BRINZOLAMIDE (AZOPT) OPS 10 ML BTL OPB SCH ×2 (08:06→20:37)
[2019-08-03] MEDS: BRIMONIDINE TARTRATE/TIMOLOL OPB SCH ×2 (08:06→20:37)
[2019-08-03] MEDS: SODIUM CHLORIDE 0.9% 1000ML 1,000 ML IV SCH ×2 (08:06→20:44)
[2019-08-03 10:30] LABS: BUN Creatinine Ratio 9.7 (10-20); Calcium 9.2 mg/dl (8.5-10.1); Creatinine Clr Calc Pharmacy 97.9 ml/min; Est GFR (African American) 115.2; Est GFR (Non-African American) 99.4; Magnesium 1.6 mg/dl (1.8-2.4)
[2019-08-03] MEDS: ALBUT/IPRATROP 3MG/0.5MG NEB 3 ML VIAL NEB SCH ×4 (11:13→23:12)
[2019-08-03] MEDS ORDERED: POTASSIUM CHLORIDE 20 MEQ TABCR PO STA ×2 (11:24→16:08)
--- NOTE | 2019-08-03 12:03 | Hospitalist Progress Note ---
Date of Service August 03, 2019 Assessment & Plan (1) Left lower lobe pneumonia: Admitted with exertional shortness of breath for some time Minimal cough but no fever and/or chills Chest x-ray shows possible left middle lobe infiltration Has been started with IV ceftriaxone and doxycycline Denies any cough, any fever and/or chills Repeat chest x-ray -left middle lung infiltration is better but seems to be developing bibasilar infiltrative change Will give 40 mg intravenous Lasix We will give oral antibiotic on discharge to finish 10-day course of antibiotic Used to use nebulized bronchodilator at home For bronchitis but not documented COPD Has been having occasional wheezing Will provide inhalers as needed And she is requiring oxygen with exertion and that will be provided at discharge (2) Anemia: Complaint to have shortness of breath on exertion Likely secondary and/or contributory due to anemia No history of GI bleed and his stool has been negative Hemoglobin remains at 8.0 today Iron studies, vitamin B12 and folate levels are within normal limit MCV is borderline high with about 1% blood cells in peripheral blood film Will check peripheral blood smear and discuss with service dismantler Differential diagnosis include hematologic malignancies Received 1 unit of blood transfusion in the ER 04/01 of this month Still having shortness of breath and with a history of cardiac problem will be given another unit of blood today Likely discharge tomorrow with a follow-up appointment with service dismantler Received another unit of blood transfusion yesterday and the hemoglobin went up to 9.1 Generally a little better We will give Lasix 40 mg IV x1 Advised to ambulate more and will get a two-year step O2 saturation test before sending her home Hemoglobin went up to 9.1 following 2 units of blood transfusion We will make an appointment with service dismantler as an outpatient following discharge (3) Paroxysmal atrial fibrillation: Rate remains controlled We will continue current medications and Coumadin INR remains therapeutic We need to have an appointment with outpatient pesticide use medical coordinator sooner than later (4) HTN (hypertension): Blood pressure remains elevated Heart rate remains around 89/min Will increase losartan to 100 mg in the morning to control blood pressure He used to take losartan 100 mg in the past Blood pressure seems to be improving Blood pressure remains on the upper side of normal DVT prophylaxis On Coumadin with therapeutic INR CODE STATUS Full Likely discharge this afternoon Admission and Anticipated Discharge Date Admission Date: July 30, 2019 Subjective The patient was seen and examined in medical telemetry unit She was admitted with on going symptoms of shortness of breath on exertion for some time and noted to have a hemoglobin of 7.6 as an outpatient Denies any chest pain and/or palpitation Complains to have some weight 08/01/2019 The patient was seen and examined in medical telemetry unit She complains to have shortness of breath without any chest pain She received 1 unit of blood on of this month and the hemoglobin is 8.6 Denies any nausea and or vomiting, any fever and/or chills 08/02/2019 The patient was seen and examined in medical telemetry unit She still feels short of breath at rest and worse with exertion Denies any chest pain and palpitation Her blood pressure was noted to be high but improving as of this morning 08/03/2019 Patient was seen and examined in medical telemetry unit Has had some shortness of breath last night with wheezing She seems to be at her baseline and doing reasonably well with physical therapy She thinks that she can go home this afternoon Denies any chest pain and/or palpitation Review of Systems Review of Systems: All systems reviewed and are unremarkable except as noted below Constitutional: + weakness Respiratory: + dyspnea (At rest and with exertion) and + dyspnea on exertion Physical Exam Physical Exam: Lying in bed with minimal shortness of breath at rest Constitutional: + acute distress (Minimal distress due to shortness of breath) and + ill appearing Eyes: PERRL, conjunctivae normal, anicteric sclerae ENMT: external ear and nose normal, oropharynx normal Neck: trachea midline, no thyromegaly Respiratory: + respiratory distress (Minimal distress at rest) Auscultation: + diminished lung sounds, + crackles (Left lower lung) and + wheezes (Minimal wheezing) Cardiovascular: Rate/Rhythm: regular rate and regular rhythm Heart Sounds: no murmur Gastrointestinal (Abdomen): Inspection/Auscultation: abdomen normal to inspection and normal bowel sounds; abdomen not distended Percussion/Palpation: abdomen soft; abdomen nontender Musculoskeletal: No acute arthritis involving any joints Neurologic: moves all extremities; no focal motor deficits Alert, awake and oriented x3 Lymphatic: no cervical or axillary lymphadenopathy Results & Data Results & Data ([facility]) Vital Signs (Past 12 Hours) Vital Signs Temp Pulse Pulse Resp BP Pulse Ox 08/03/19 11:21 36.5 C 69 16 149/82 H 94 08/03/19 11:13 70 20 94 08/03/19 09:11 79 08/03/19 07:20 36.9 C 77 18 161/79 H 95 08/03/19 04:21 36.5 C 68 18 153/82 H 96 Laboratory Results BMP 08/03/19 07:04 Sodium 138 Potassium 3.0 L Chloride 105 Carbon Dioxide 27 BUN 5 L Creatinine 0.46 L Glucose 102 H Calcium 9.2 Medications Administered Current Inpatient Medications Acetaminophen (Tylenol) 650 mg PO Q4H PRN PRN Reason: Pain or Fever Stop: 08/29/19 22:34 Last Admin: 08/03/19 02:15 Dose: 650 mg Documented by: Albuterol (Ventolin Hfa) 1 puffs INH QID PRN PRN Reason: Shortness Of Breath Stop: 08/29/19 22:38 Albuterol (Duoneb) 3 ml NEB Q4R [facility] Stop: 09/02/19 10:59 Last Admin: 08/03/19 11:13 Dose: 3 ml Documented by: Amlodipine [facility] ([facility]asc) [facility] Stop: 08/30/19 08:59 Last Admin: 08/03/19 08:05 Dose: 5 mg Documented by: Brimonidine/Timolol (Combigan) 1 drops OPB BID [facility] Stop: 08/30/19 08:59 Last Admin: 08/03/19 08:06 Dose: 1 drops Documented by: Brinzolamide (Azopt) 1 drops OPB BID [facility] Stop: 08/29/19 22:34 Last Admin: 08/03/19 08:06 Dose: 1 drops Documented by: Cetirizine HCl (Zyrtec) 5 mg PO DAILY PRN PRN Reason: allergies Stop: 08/29/19 22:34 Last Admin: 08/01/19 14:40 Dose: 5 mg Documented by: Cyanocobalamin (Vitamin B-12) 1,000 mcg PO QAM [facility] Stop: 08/30/19 08:59 Last Admin: 08/03/19 08:05 Dose: 1,000 mcg Documented by: Fluticasone Propionate (Flonase) 1 sprays NA DAILY PRN PRN Reason: allergies Stop: 08/29/19 22:34 Sodium Chloride (Nss 1000ml) 1,000 mls @ 75 mls/hr IV .[id number] [facility] Stop: 08/29/19 22:34 Last Admin: 08/03/19 08:06 Dose: 75 mls/hr Documented by: Pantoprazole Sodium 40 mg/ (Syringe) 10 mls @ 5 mls/min IV BID [facility] Stop: 08/29/19 22:34 Last Admin: 08/03/19 08:05 Dose: 5 mls/min Documented by: Ceftriaxone Sodium 1,000 mg/ (Dextrose) 50 mls @ 100 mls/hr IV Q24H [facility]; Protocol Stop: 08/05/19 20:29 Last Infusion: 08/02/19 22:46 Dose: Infused Documented by: Doxycycline Hyclate 100 mg/ (Dextrose) 110 mls @ 50 mls/hr IV Q12H [facility] Stop: 08/07/19 05:59 Last Infusion: 08/03/19 08:10 Dose: Infused Documented by: Levothyroxine Sodium (Synthroid) 25 mcg PO DAILYBB [facility] Stop: 08/30/19 06:29 Last Admin: 08/03/19 06:05 Dose: 25 mcg Documented by: Lorazepam (Ativan) 0.5 mg PO DAILY PRN PRN Reason: Anxiety Stop: 08/29/19 22:34 Last Admin: 08/03/19 06:14 Dose: 0.5 mg Documented by: Losartan Potassium (Cozaar) 100 mg PO QAM [facility] Stop: 09/01/19 08:59 Last Admin: 08/03/19 08:05 Dose: 100 mg Documented by: Magnesium Oxide (Mag-Ox) 400 mg PO BID [facility] Stop: 09/02/19 11:29 Metoprolol Succinate (Toprol Xl) 25 mg PO BID [facility] Stop: 08/29/19 22:34 Last Admin: 08/03/19 08:05 Dose: 25 mg Documented by: Multivitamins/Minerals (Caltrate Plus) 1 tab PO BID [facility] Stop: 08/30/19 08:59 Last Admin: 08/03/19 08:05 Dose: 1 tab Documented by: Nitroglycerin (Nitrostat) 0.4 mg SL UD PRN PRN Reason: Chest Pain Stop: 08/29/19 22:34 Rocklatan~Non- Formulary Patient's Own Med 1 ea OP HS [facility] Stop: 08/30/19 20:59 Last Admin: 08/02/19 22:11 Dose: 1 drops Documented by: Ondansetron HCl (Zofran) 4 mg IV Q6H PRN PRN Reason: Nausea Stop: 08/29/19 22:34 Sotalol HCl (Betapace) 80 mg PO BID [facility] Stop: 08/29/19 22:34 Last Admin: 08/03/19 08:05 Dose: 80 mg Documented by: (1) Left lower lobe pneumonia Pneumonia type: due to unspecified organism Qualified Code(s): J18.9 - Pneumonia, unspecified organism (2) Anemia Anemia type: unspecified type Qualified Code(s): D64.9 - Anemia, unspecified
[2019-08-03] MEDS: MAGNESIUM OXIDE 400 MG TAB PO SCH ×2 (13:33→20:37)
[2019-08-03] MEDS ORDERED: SODIUM CHLORIDE 0.65% NA SOLN 45 ML (OCEAN) ONE (13:36)
[2019-08-03] MEDS ORDERED: FUROSEMIDE 40 MG in SYRINGE 0 ML IV ONE (16:15)
[2019-08-03] MEDS: PANTOprazole 40 MG TAB PO SCH (20:37)
[2019-08-03] MEDS: DOXYCYCLINE HYCLATE 100 MG CAP PO SCH (20:37)
[2019-08-03] MEDS: cefUROXime axetil 250 MG TABLET PO SCH (20:37)
[2019-08-03] MEDS: ROCKLATAN OP SCH (20:38)
[2019-08-04] MEDS: ALBUT/IPRATROP 3MG/0.5MG NEB 3 ML VIAL NEB SCH ×3 (03:28→10:40)
[2019-08-04 06:23] LABS: Hematocrit (blood only) 25.6 % (37-47); Hemoglobin 8.4 g/dL (12.0-16.0); Mean Corpuscular Hemoglobin 32.7 pg (25-34); Mean Corpuscular Hgb Conc 32.8 g/dL (32-36); Mean Corpuscular Volume 99.6 fL (80-100); Nucleated RBC # (auto) 0.08 K/uL (0-0); Platelet Count 194 K/uL (130-400); RDW Coefficient of Variation 20.6 % (11.5-14.5); RDW Standard Deviation 75.2 fL (36.4-46.3); Red Blood Count 2.57 M/uL (4.2-5.4)
[2019-08-04] MEDS: LEVOTHYROXINE SODIUM 25 MCG TABLET PO SCH (06:28)
[2019-08-04 06:33] LABS: INR 1.6 (0.9-1.1); Prothrombin Time 16.8 Seconds (9.0-12.0)
[2019-08-04 06:41] LABS: BUN Creatinine Ratio 18.1 (10-20); Calcium 9.4 mg/dl (8.5-10.1); Creatinine Clr Calc Pharmacy 88.3 ml/min; Est GFR (African American) 111.3; Est GFR (Non-African American) 96.1; Magnesium 1.7 mg/dl (1.8-2.4); Potassium 3.6 mmol/L (3.5-5.1)
[2019-08-04 06:55] LABS: Anisocytosis Present; Basophils # (auto) 0.11 K/uL (0-0.2); Basophils % (auto) 2.6 %; Eosinophils # (auto) 0.11 K/uL (0-0.5); Eosinophils % (auto) 2.6 %; Immature Granulocytes # (auto) 0.19 K/uL (0.00-0.02); Immature Granulocytes % (auto) 4.5 %; Lymphocytes # (auto) 1.36 K/uL (1.2-3.4); Lymphocytes % (auto) 32.4 %; Monocytes # (auto) 0.54 K/uL (0.11-0.59); Monocytes % (auto) 12.9 %; Neutrophils # (auto) 1.89 K/uL (1.4-6.5); Ovalocytes 1+
[2019-08-04] MEDS: MAGNESIUM OXIDE 400 MG TAB PO SCH (08:27)
[2019-08-04] MEDS: CYANOCOBALAMIN 500 MCG TABLET (VITAMIN B-12) PO SCH (08:28)
[2019-08-04] MEDS: SOTALOL HCL 80 MG TAB PO SCH (08:28)
[2019-08-04] MEDS: CALCIUM 600MG + VIT D 400 IU TAB PO SCH (08:28)
[2019-08-04] MEDS: LOSARTAN POTASSIUM 50 MG TAB PO SCH (08:28)
[2019-08-04] MEDS: DOXYCYCLINE HYCLATE 100 MG CAP PO SCH (08:29)
[2019-08-04] MEDS: METOPROLOL SUCC 25MG EXT REL TAB PO SCH (08:29)
[2019-08-04] MEDS: AMLODIPINE BESYLATE 5 MG TAB PO SCH (08:29)
[2019-08-04] MEDS: PANTOprazole 40 MG TAB PO SCH (08:29)
[2019-08-04] MEDS: BRINZOLAMIDE (AZOPT) OPS 10 ML BTL OPB SCH (08:29)
[2019-08-04] MEDS: cefUROXime axetil 250 MG TABLET PO SCH (08:29)
[2019-08-04] MEDS: BRIMONIDINE TARTRATE/TIMOLOL OPB SCH (08:30)
[2019-08-04 11:57] VITALS: BP 156/78; PULSE 76; TEMP 98.2; O2SAT 92
--- NOTE | 2019-08-04 12:34 | Hospitalist Progress Note ---
Date of Service August 04, 2019 Assessment & Plan (1) Left lower lobe pneumonia: Left lower lobe pneumonia H/O Pulm HTN as per records Chest x-ray shows possible left middle lobe infiltration Repeat chest x-ray -left middle lung infiltration is better but seems to be developing bibasilar infiltrative change Received IV ceftriaxone and doxycycline Uses Nebulized bronchodilator at home for bronchitis as per patient 2 step: Qualifies for oxygen 2 L at rest and with activity Transition to Ceftin, doxycycline to complete 10 day course Continue Albuterol inhaler as needed (2) Anemia: Symptomatic Anemia Likely due to MDS Presented with Dyspnea on exertion S/P 2 units PRBCs No overt GI bleeding Iron studies, vitamin B12 and folate levels are within normal limit Flow Cytometry: Possible MDS Continue PPI Appreciate GI Input Planned for EGD/Colonoscopy as outpatient Discussed with [facility] Oncologist utilization engineer Needs follow up with Oncology as outpatient Will likely need bone marrow biopsy as outpatient Hypokalemia Hypomagnesemia Replete electrolytes as needed (3) Paroxysmal atrial fibrillation: Rate controlled Continue Metoprolol Monitor INR Resume coumadin (4) HTN (hypertension): Blood pressure elevated during hospital course Losartan increased to 100 mg for better BP control Monitor BP DVT Px: Resume Coumadin CODE STATUS Full Code Disposition Home with Home Health Admission and Anticipated Discharge Date Admission Date: July 30, 2019 Subjective Patient is seen and examined at bedside Cough, dyspnea on exertion improved Hemoglobin fairly stable Flow cytometry suggestive of possible MDS Discussed with oncology Dr. Pereira today Denies any bleeding issues Also denies any chest pain, dizziness, nausea, abdominal pain Had 2 step: Qualifies for oxygen Review of Systems Review of Systems: All systems reviewed & are unremarkable except as noted in HPI & below Physical Exam Physical Exam: Physical Exam: Vitals signs as noted above General Appearance:Moderately built and nourished, no apparent distress, ill appearing, Head: normocephalic, Atraumatic Eyes: normal inspection, EOMI, + Legally Blind Neck: supple, Trachea midline Respiratory/Chest: Decreased breath sounds, CTA, No accessory muscle use Cardiovascular: S1, S2, No murmur Abdomen/GI:Soft, Non tender, Bowel sounds present Extremities/Musculoskelatal:normal inspection, no edema Neurologic/Psych:AAOX3, grossly no focal neurological deficits Skin: normal color, warm Results & Data Results & Data ([facility]) Vital Signs (Past 12 Hours) Vital Signs Temp Pulse Pulse Pulse Pulse Pulse Pulse 08/04/19 11:56 36.8 C 76 08/04/19 10:46 87 08/04/19 10:42 80 87 88 79 08/04/19 07:13 82 08/04/19 07:05 80 08/04/19 07:04 36.9 C 76 08/04/19 04:43 36.7 C 66 08/04/19 03:28 69 08/04/19 02:10 67 Resp Resp Resp Resp Resp BP BP 08/04/19 11:56 18 156/78 H 08/04/19 10:46 24 08/04/19 10:42 22 28 H 26 H 20 08/04/19 07:13 08/04/19 07:05 18 08/04/19 07:04 18 143/79 H 08/04/19 04:43 20 131/74 08/04/19 03:28 16 08/04/19 02:10 Pulse Ox Pulse Ox Pulse Ox Pulse Ox Pulse Ox 08/04/19 11:56 92 08/04/19 10:46 90 08/04/19 10:42 91 90 90 86 L 08/04/19 07:13 08/04/19 07:05 95 08/04/19 07:04 96 08/04/19 04:43 96 08/04/19 03:28 97 08/04/19 02:10 Laboratory Results Short CBC 08/04/19 08/04/19 Range/Units 06:07 06:07 WBC 4.20 L (4.8-10.8) K/uL Hgb 8.4 L Cancelled (12.0-16.0) g/dL Hct 25.6 L Cancelled (37-47) % Plt Count 194 (130-400) K/uL BMP 08/04/19 06:07 Sodium 138 Potassium 3.6 D Chloride 105 Carbon Dioxide 27 BUN 9 Creatinine 0.51 L Glucose 87 Calcium 9.4 (1) Left lower lobe pneumonia Pneumonia type: due to unspecified organism Qualified Code(s): J18.9 - Pneumonia, unspecified organism (2) Anemia Anemia type: unspecified type Qualified Code(s): D64.9 - Anemia, unspecified
--- NOTE | 2019-08-04 12:46 | Discharge Summary ---
Date of Service August 04, 2019 Admission HPI Per Admitting Provider CHIEF COMPLAINT: Shortness of breath on exertion. HISTORY OF PRESENT ILLNESS: A 74-year-old female with past medical history significant for COPD, hypothyroidism, allergic rhinitis, paroxysmal atrial fibrillation, pulmonary hypertension, essential hypertension, GERD, primary open-angle glaucoma, history of migraines, anxiety presents with shortness of breath on exertion. The patient states she is having lately shortness of breath on exertion. She is supposed to get right hip surgery on 08/13/2019 and she went for preoperative evaluation and she was found to have hemoglobin of 7.7. She was advised to come to the ER. The patient says about a month ago she had reddish brown stool, one episode, but she attributed it to the food she ate that night, but she did not notice any black stools or blood in the stool since then. No hematuria, no burning micturition. Some nausea, but no vomiting. The patient is having some back pain since few months since then she lost appetite and lost about 30 pounds. Denies any chest pain, no shortness of breath. She has some occasional cough from her allergies, some runny nose, some on and off allergies. No sore throat, no difficulty swallowing. No headache, no dizziness, no blurred visions, no earache. No rash. Ambulates with the help of walker. No loss of smell or taste. Admission Exam Per Admitting Provider PHYSICAL EXAMINATION: GENERAL: The patient is of moderate build, not in acute distress. VITAL SIGNS: Temperature 36.7, pulse 79, respiratory rate 24, blood pressure 159/77, oxygen 93% on room air. HEENT: No pallor. Pupils equal, round, and reactive to light. Extraocular muscles intact. NECK: No JVD, no neck masses. CARDIOVASCULAR: S1, S2 heard, regular rate and rhythm, no murmur, no gallop. RESPIRATORY SYSTEM: Normal AP diameter. No accessory muscle use. No wheezing, no crackles. ABDOMEN: Soft, bowel sounds present, nontender. No distention. CENTRAL NERVOUS SYSTEM: Cranial nerves II-XII grossly intact. Nonfocal. EXTREMITIES: Mild pedal edema present, no erythema seen. Principal Diagnosis Left lower lobe pneumonia Symptomatic anemia Possible myelodysplastic syndrome Hypokalemia Hypomagnesemia Discharge Data Allergies Allergy/AdvReac Type Severity Reaction Status Date / Time Iodinated Contrast Media Allergy Intermediate HAD 1 WELT Verified 07/30/19 21:16 on one occasion nickel Allergy Mild contact Verified 07/30/19 21:16 dermatitis propranolol Allergy Mild bronchospasms Verified 07/30/19 21:16 with higher doses Consultations 07/30/19 20:21 ED Decision to Admit Stat 07/30/19 22:35 Consult Case Management - Discharge Planning Routine 07/31/19 08:00 Consult Gastroenterology Routine Procedures Performed CXR: Mild stable cardiomegaly. Rectal infiltrate left mid lung. Right lung is clear. Diaphragms are smooth. Hospital Course (1) Left lower lobe pneumonia: Left lower lobe pneumonia H/O Pulm HTN as per records Chest x-ray shows possible left middle lobe infiltration Repeat chest x-ray -left middle lung infiltration is better but seems to be developing bibasilar infiltrative change Received IV ceftriaxone and doxycycline Uses Nebulized bronchodilator at home for bronchitis as per patient 2 step: Qualifies for oxygen 2 L at rest and with activity Transition to Ceftin, doxycycline to complete 10 day course Continue Albuterol inhaler as needed (2) Anemia: Symptomatic Anemia Likely due to MDS Presented with Dyspnea on exertion S/P 2 units PRBCs No overt GI bleeding Iron studies, vitamin B12 and folate levels are within normal limit Flow Cytometry: Possible MDS Continue PPI Appreciate GI Input Planned for EGD/Colonoscopy as outpatient Discussed with [facility] Oncologist construction technician Needs follow up with Oncology as outpatient Will likely need bone marrow biopsy as outpatient Hypokalemia Hypomagnesemia Replete electrolytes as needed (3) Paroxysmal atrial fibrillation: Rate controlled Continue Metoprolol Monitor INR Resume coumadin (4) HTN (hypertension): Blood pressure elevated during hospital course Losartan increased to 100 mg for better BP control Monitor BP DVT Px: Resume Coumadin CODE STATUS Full Code Disposition Home with Home Health Total Time Total Time Spent Total Time Spent (In Minutes): 40 minutes Total Time Includes: Examination of the Patient, Discharge Planning, Medication Reconciliation, Communication With Other Providers and Other Discharge Plan Discharge Items Patient Disposition: Home - Home Health Services Reason For Visit: SHORTNESS OF BREATH, ANEMIA Discharge Diagnosis: Left lower lobe pneumonia Symptomatic anemia Possible myelodysplastic syndrome Hypokalemia Hypomagnesemia Condition on Discharge: Fair Activity: Per Instructions section Exercise/Sports: Gradually increase as tolerated Non-emergency contact: Primary Care Provider, Manager Willow and Oncologist Call non-emergency contact if: you have any medication questions, your symptoms worsen, your pain is not controlled, your pain is worsening, your pain is concerning for you and you have a fever Follow-up/Referrals: Radha Caceres [Nurse Practitioner] - 08/12/19 2:30 pm Ankit Pereira MD [Surgeon] - 08/11/19 9:30 am (You have an appointment with Dr Pereira in the [facility].) Mare Wright DO [Primary Care Provider] - 08/06/19 11:00 am (08/06/2019 11:00 AM Provider Mare Wright DO [facility] ) Diet: Heart Healthy Addtl Attending Provider Instructions: Follow-up with your primary care physician Dr. Wright on August 06, 2019 at 11 AM Follow-up with your oncologist Dr. Ankit Pereira on August 11, 2019 at 9:30 AM Follow-up with your soils engineer ASTER Baldwin on August 12, 2019 at 2:30 PM Follow-up with Coumadin clinic for monitoring your PT/INR and Coumadin dosing as advised Get endoscopy, colonoscopy as outpatient for further evaluation of anemia. Complete antibiotic course: Ceftin, doxycycline as prescribed for pneumonia Your blood pressure medication: Losartan is increased to 100 mg daily for better control of your blood pressure. Your Omeprazole is switched to Protonix 40mg twice a day as recommended by your Manager Willow Use oxygen 2 L via nasal cannula at rest and with activity. Seek immediate medical attention if your symptoms reoccur or worsen Pending Studies at Discharge: No Stand-Alone Forms: My [facility] [employer] [place] [employer], Smoking Cessation Medications and DC Order Prescriptions: New doxycycline hyclate 100 mg Capsule 100 mg PO BID Qty: 11 RF: 0 cefuroxime axetil 250 mg Tablet 250 mg PO BID Qty: 11 RF: 0 magnesium oxide 400 mg (241.3 mg magnesium) Tablet 400 mg PO BID Qty: 14 RF: 0 pantoprazole 40 mg Tablet,Delayed Release (Dr/Ec) 40 mg PO BID Qty: 60 RF: 0 losartan 100 mg tablet 100 mg PO DAILY Qty: 30 RF: 0 Continued sotalol 80 mg Tablet 80 mg PO BID Qty: 60 RF: 6 amlodipine 5 mg tablet 5 mg PO QAM RF: 0 metoprolol succinate 25 mg tablet extended release 24 hr 25 mg PO BID RF: 0 albuterol sulfate [ProAir HFA] 90 mcg/actuation Hfa Aerosol Inhaler 1 inh INHALATION QID PRN (Reason: SHORT OF BREATH) Qty: 6.7 RF: 0 cetirizine [Zyrtec] 10 mg Tablet 5 mg PO DAILY PRN (Reason: allergies) RF: 0 warfarin 2.5 mg Tablet 2.5 mg PO SUMOTUWETHFR RF: 0 lysine 1,000 mg Tablet 1,000 mg PO QAM RF: 0 levothyroxine 25 mcg Tablet 25 mcg PO QAM RF: 0 fluticasone propionate [Flonase Allergy Relief] 50 mcg/actuation [place] spension 1 spray INTRANASAL BID PRN (Reason: allergies) RF: 0 Calcium 600 + D(3) 600 mg calcium- 200 unit Capsule 1 tab PO BID RF: 0 valacyclovir 1 gram Tablet 2,000 mg PO Q12H PRN (Reason: Cold Sores) RF: 0 lorazepam 0.5 mg Tablet 0.5 mg PO DAILY PRN (Reason: Anxiety) RF: 0 Azopt 1 % Drops,Suspension 1 drp OPB BID RF: 0 Combigan 0.2-0.5 % Drops 1 drp OPB BID RF: 0 Rocklatan 0.02-0.005 % Drops 1 drp OPB HS RF: 0 cyanocobalamin (vitamin B-12) 1,000 mcg Tablet, Sublingual 1,000 mcg SUBLINGUAL QAM RF: 0 Discontinued omeprazole magnesium [Prilosec OTC] 20 mg Tablet,Delayed Release (Dr/Ec) 20 mg PO QAM RF: 0 losartan 50 mg Tablet 50 mg PO QAM RF: 0 Discharge Orders: Discharge Order (Routine); Ordered 08/04/19 Ordered By: Juliano Gallagher Admission Data Admit Date/Time: 07/30/19 21:00 Attending Provider: Juliano Gallagher Admit Provider: Dylon Palm Primary Care Provider: Mare Wright Other Providers: Dylon Palm ; Radha Caceres ; Melina Don ; Ronaldo Patricia ; Eveline Ladd ; Glenroy Martin ; Gal Mcgregor ; Dorothy Hughes ; Michelle Payton ; Dedrick Duron ; Andrea Pedraza ; Tanesha Chauhan ; Tigist Ha ; Janel Justin ; Hermelinda Flores ; Alberto Cancino Other Interventions: Discharge Summary Assessment (RN) Last Done: 08/04/19 13:39 DC Date/Time DO NOT enter until pt leaves facility: 08/04/19 15:19
[2019-08-04] MEDS: ACETAMINOPHEN 325 MG TAB PO PRN (13:09)
[2019-08-04] MEDS ORDERED: WARFARIN SOD 2.5 MG TAB PO SCH (16:00)
== END 2019-08-04 15:19 | disposition home health service (06) | DRG 193 ==
LOC: ED 17:37 → 2N 21:00 → SUATTDRO 21:00 → 2N 21:40